=== PATIENT | male | born 1950 | race African-American/Black ===

== ENCOUNTER 2016-10-30 06:48 | Emergency (ER) | payer OTHER, MEDICARE ==
[2016-10-30 07:07] LABS: ABSOLUTE BASOPHILS # (AUTO) 0.1 10^3/uL (0.0-0.2); ABSOLUTE EOSINOPHILS # (AUTO) 0.2 10^3/uL (0.0-0.6); ABSOLUTE LYMPHOCYTES (AUTO) 2.4 10^3/uL (0.5-4.7); ABSOLUTE MONOCYTES (AUTO) 0.6 10^3/uL (0.1-1.4); ABSOLUTE NEUT (AUTO) 7.7 10^3/uL (1.7-8.2); BASOPHILS % (AUTO) 0.6 % (0-2); EOSINOPHILS % (AUTO) 1.5 % (0-6); HEMATOCRIT 40.4 % (37.9-51.0); HEMOGLOBIN 13.5 g/dL (13.5-17.0); HGB HCT DIFFERENCE 0.1; LYMPHOCYTES % (AUTO) 21.9 % (13-45); MEAN CORPUSCULAR HEMOGLOBIN 31.7 pg (27.0-33.4); MEAN CORPUSCULAR HGB CONC 33.5 g/dL (32.0-36.0); MEAN CORPUSCULAR VOLUME 95 fl (80-97); MONOCYTES % (AUTO) 5.8 % (3-13); RED BLOOD COUNT 4.27 10^6/uL (4.35-5.55); SEGMENTED NEUTROPHILS % (AUTO) 70.2 % (42-78); WHITE BLOOD COUNT 10.9 10^3/uL (4.0-10.5)
--- NOTE | 2016-10-30 07:07 | ER Document Report ---
ED General - General Chief Complaint: Low Blood Sugar Stated Complaint: BLOOD SUGAR PROBLEMS Time Seen by Provider: 10/30/16 06:51 Mode of Arrival: Ambulatory Information source: Patient Notes: 66-year-old diabetic male on glipizide and metformin presents with complaints of hypoglycemia. Patient had an episode last night blood sugar was low, EMS was called and his blood sugar corrected, this morning patient was drowsy stating he was swimming, blood sugar was noted to be 37, he was given oral glucose blood sugar went up and went back down again 49. family notes patient is doing better now - HPI Onset: Just prior to arrival Onset/Duration: Sudden Quality of pain: No pain Severity: Mild Pain Level: Denies Associated symptoms: Weakness Exacerbated by: Denies Relieved by: Denies Similar symptoms previously: Yes Recently seen / treated by doctor: Yes - Related Data Allergies/Adverse Reactions: No Known Allergies Allergy (Unverified 01/24/11 02:45) Past Medical History - Social History Smoking Status: Current Every Day Smoker Cigarette use (# per day): Yes Chew tobacco use (# tins/day): No Smoking Education Provided: No Family History: Reviewed & Not Pertinent Review of Systems - Review of Systems Notes: REVIEW OF SYSTEMS: CONSTITUTIONAL : Denies fever, chills, or sweats. Denies recent illness. EENT: Denies eye, ear, throat, or mouth pain or symptoms. Denies nasal or sinus congestion or discharge. Denies throat, tongue, or mouth swelling or difficulty swallowing. CARDIOVASCULAR: Denies chest pain. Denies palpitations or racing or irregular heart beat. Denies ankle edema. RESPIRATORY: Denies cough, cold, or chest congestion. Denies shortness of breath, difficulty breathing, or wheezing. GASTROINTESTINAL: Denies abdominal pain or distention. Denies nausea, vomiting , or diarrhea. Denies blood in vomitus, stools, or per rectum. Denies black, tarry stools. Denies constipation. GENITOURINARY: Denies difficulty urinating, painful urination, burning, frequency, blood in urine, or discharge. MUSCULOSKELETAL: Denies back or neck pain or stiffness. Denies joint pain or swelling. SKIN: Denies rash, lesions or sores. HEMATOLOGIC : Denies easy bruising or bleeding. LYMPHATIC: Denies swollen, enlarged glands. NEUROLOGICAL: admits to confusion PSYCHIATRIC: Denies anxiety or stress. Denies depression, suicidal ideation, or homicidal ideation. ALL OTHER SYSTEMS REVIEWED AND NEGATIVE. Dictation was performed using [employer] voice recognition software PHYSICAL EXAMINATION: GENERAL: Well-appearing, well-nourished and in no acute distress. HEAD: Atraumatic, normocephalic. EYES: Pupils equal round and reactive to light, extraocular movements intact, sclera anicteric, conjunctiva are normal. ENT: Nares patent, oropharynx clear without exudates. Moist mucous membranes. NECK: Normal range of motion, supple without lymphadenopathy LUNGS: Breath sounds clear to auscultation bilaterally and equal. No wheezes rales or rhonchi. HEART: Regular rate and rhythm without murmurs ABDOMEN: Soft, nontender, nondistended abdomen. No guarding, no rebound. No masses appreciated. Musculoskeletal: Normal range of motion, no pitting or edema. No cyanosis. NEUROLOGICAL: Cranial nerves grossly intact. Normal speech, normal gait. Normal sensory, motor exams PSYCH: Normal mood, normal affect. SKIN: Warm, Dry, normal turgor, no rashes or lesions noted. Physical Exam - Vital signs Vitals: Temp Pulse Resp BP Pulse Ox 97.2 F 73 18 143/78 H 100 10/30/16 06:52 10/30/16 06:52 10/30/16 06:52 10/30/16 06:52 10/30/16 06:52 Course - Re-evaluation Re-evalutation: 10/30/16 07:07 pt will be fed and watched closely, he is acting at his baseline at this time. 10/30/16 10:09 Patient's blood sugar was rechecked and he is now stable I will discharge with understand that the patient continue eating and checking his blood sugar at home After performing a Medical Screening Examination, I estimate there is LOW risk for INTRACRANIAL HEMORRHAGE, ISCHEMIC CVA, MALIGNANT DYSRHYTHMIA, ACUTE CORONARY SYNDROME, MENINGITIS, PULMONARY EMBOLISM, or SEPSIS thus I consider the discharge disposition reasonable. I have reevaluated this patient multiple times and no significant life threatening changes are noted. The patient and I have discussed the diagnosis and risks, and we agree with discharging home with close follow-up with the understanding that symptoms and presentations can change. We also discussed returning to the Emergency Department immediately if new or worsening symptoms occur. We have discussed the symptoms which are most concerning (e.g., changing or worsening pain, weakness, vomiting, fever) that necessitate immediate return. - Vital Signs Vital signs: Temp Pulse Resp BP Pulse Ox 97.2 F 73 17 111/77 100 10/30/16 06:52 10/30/16 06:52 10/30/16 09:01 10/30/16 09:00 10/30/16 09:01 - Laboratory Result Diagrams: 10/30/16 06:50 10/30/16 06:50 Laboratory results interpreted by me: 10/30/16 10/30/16 06:50 08:17 WBC 10.9 H RBC 4.27 L POC Glucose 128 H - EKG Interpretation by Me EKG shows normal: Sinus rhythm, [place], Intervals, QRS Complexes Discharge - Discharge Clinical Impression: Hypoglycemia Altered mental status Qualifiers: Altered mental status type: unspecified Qualified Code(s): R41.82 - Altered mental status, unspecified Condition: Stable Disposition: HOME, SELF-CARE Instructions: Hypoglycemia (OM) Referrals: OLGA FORDE MD [Primary Care Provider] - Follow up tomorrow
[2016-10-30 10:10] VITALS: BP 133/106
[2016-10-30 10:28] LABS: ALANINE AMINOTRANSFERASE 22 U/L (21-72); ALBUMIN 4.2 g/dL (3.5-5.0); ALKALINE PHOSPHATASE 77 U/L (38-126); ANION GAP 10 (5-19); ASPARTATE AMINO TRANSFERASE 21 U/L (17-59); BILIRUBIN,DIRECT 0.3 mg/dL (0.0-0.4); BILIRUBIN,TOTAL 0.4 mg/dL (0.2-1.3); BLOOD UREA NITROGEN 31 mg/dL (7-20); CARBON DIOXIDE 20 mmol/L (22-30); CHLORIDE 103 mmol/L (98-107); CREATININE RESULT 1.76 mg/dL (0.52-1.25); GLUCOSE 101 mg/dL (75-110); SODIUM 132.8 mmol/L (137-145); TOTAL PROTEIN 7.7 g/dL (6.3-8.2)
[2016-10-30] MEDS ORDERED: 1/2 NORMAL SALINE 1,000 ML IV PRN (17:32)
[2016-10-30] MEDS ORDERED: ACETAMINOPHEN 325 MG TABLET PO PRN (17:32)
[2016-10-30] MEDS ORDERED: GLUCAGON,HUMAN RECOMB 1 MG INJ IM PRN (17:35)
[2016-10-30] MEDS ORDERED: DEXTROSE 50%-WATER 25 GM/50 ML DISP.SYRIN IV PRN ×2 (17:35)
[2016-10-30] MEDS ORDERED: DEXTROSE 40% GEL 15 GM TUBE PO PRN ×2 (17:35)
[2016-10-30] MEDS ORDERED: INSULIN LISPRO 100 UNIT/ML 3 ML VIAL SUBCUT PRN (17:35)
[2016-10-30] MEDS ORDERED: SODIUM POLYSTYRENE SULFONATE 15 GM/60 ML PO ONE (17:43)
--- NOTE | 2016-10-30 17:43 | PDOC H&P ---
History of Present Illness Admission Date/PCP: OLGA FORDE MD Patient complains of: Low blood sugar and abnormal labs History of Present Illness: ERNIE MERLOS is a 66 year old male This is a 66-year-old male with a history of the type 2 diabetes hypertension's hyperlipidemia and history of the chronic alcoholism with a recently quit the alcohol more than 1 week and start drinking more water and did not the patient' s blood sugar is running low and patient is called the ambulance and give a more orange juice and patient was brought to the emergency department last night that patient was watch for several hours and blood sugar was about 150 and patient was discharged home. Patients denied any chest pain denied any shortness of the breath no abdominal pain no nausea no vomiting and no diarrhea The ER physicians call my office after he noticed that patient's potassium was 7 and we called the patient's and the patient was back to the emergency department the potassium was 6.7 and at this point admitting in the hospital for further evaluation and treatments as per ER physician discussed with the nephrology Dr. Hung . patient's creatinine was 1.1 and BUN was 12 and potassium was 4.8 back in June 2016. Patient's other blood work was also stable. Patient's currently taking the lisinopril 40 mg daily for the blood pressures and no other medications that caused elevated potassiums Past Medical History Cardiac Medical History: Denies: None, Atrial Fibrillation, Congestive Heart Failure, Coronary Artery Disease, DVT, Myocardial Infarction, Hyperlipidema, Hypertension, Peripheral Vascular Disease, Pulmonary Embolism, Heart Murmur, Other Neurological Medical History: Denies: None, Hemorrhagic CVA, Ischemic CVA, Migraine, Multiple Sclerosis, Seizures, Other Endocrine Medical History: Reports: Diabetes Mellitus Type 2 GI Medical History: Reports: Gastroesophageal Reflux Disease Musculoskeltal Medical History: Reports: Arthritis, Other Musculoskeletal History Note: Rheumatoid arthritis Psychiatric Medical History: Reports: Alcohol Dependency, Depression Social History Smoking Status: Current Every Day Smoker Family History Family History: Reviewed & Not Pertinent Parental Family History Reviewed: Yes Children Family History Reviewed: Yes Sibling(s) Family History Reviewed.: Yes Medication/Allergy Allergies/Adverse Reactions: No Known Allergies Allergy (Unverified 01/24/11 02:45) Review of Systems Constitutional: ABSENT: chills, fever(s), headache(s), weight gain, weight loss Eyes: ABSENT: visual disturbances Ears: ABSENT: hearing changes Cardiovascular: ABSENT: chest pain, dyspnea on exertion, edema, orthropnea, palpitations Respiratory: ABSENT: cough, hemoptysis Gastrointestinal: ABSENT: abdominal pain, constipation, diarrhea, hematemesis, hematochezia, nausea, vomiting Genitourinary: ABSENT: dysuria, hematuria Musculoskeletal: ABSENT: joint swelling Integumentary: ABSENT: rash, wounds Neurological: ABSENT: abnormal gait, abnormal speech, confusion, dizziness, focal weakness, syncope Psychiatric: ABSENT: anxiety, depression, homidical ideation, suicidal ideation Endocrine: ABSENT: cold intolerance, heat intolerance, menstrual abnormalities, polydipsia, polyuria Hematologic/Lymphatic: ABSENT: easy bleeding, easy bruising, lymphadenopathy Physical Exam Vital Signs: Temp Pulse Resp BP Pulse Ox 97.2 F 73 17 133/106 H 100 10/30/16 06:52 10/30/16 06:52 10/30/16 10:01 10/30/16 10:01 10/30/16 10:01 Intake & Output 10/29/16 10/30/16 10/31/16 06:59 06:59 06:59 Weight 106.6 kg General appearance: PRESENT: no acute distress, well-developed, well-nourished Head exam: PRESENT: atraumatic, normocephalic Eye exam: PRESENT: conjunctiva pink, EOMI, PERRLA. ABSENT: scleral icterus Ear exam: PRESENT: normal external ear exam Mouth exam: PRESENT: moist, tongue midline Neck exam: PRESENT: full ROM. ABSENT: carotid bruit, JVD, lymphadenopathy, thyromegaly Respiratory exam: PRESENT: clear to auscultation winsome Cardiovascular exam: PRESENT: RRR. ABSENT: diastolic murmur, rubs, systolic murmur Pulses: PRESENT: normal dorsalis pedis pul, +2 pedal pulses bilateral Vascular exam: PRESENT: normal capillary refill GI/Abdominal exam: PRESENT: normal bowel sounds, soft. ABSENT: distended, guarding, mass, organolmegaly, rebound, tenderness Rectal exam: PRESENT: deferred Extremities exam: ABSENT: full ROM, left AKA, right AKA, left BKA, right BKA, calf tenderness, joint swelling, pedal edema, tenderness, other Neurological exam: PRESENT: alert, awake, oriented to person, oriented to place , oriented to time, oriented to situation, CN II-XII grossly intact. ABSENT: motor sensory deficit Psychiatric exam: PRESENT: appropriate affect, normal mood. ABSENT: homicidal ideation, suicidal ideation Skin exam: PRESENT: dry, intact, warm. ABSENT: cyanosis, rash Results Laboratory Results: 10/30/16 06:50 10/30/16 09:46 10/30/16 10/30/16 10/30/16 06:50 06:50 07:25 WBC 10.9 H RBC 4.27 L Hgb 13.5 Hct 40.4 MCV 95 MCH 31.7 MCHC 33.5 RDW 14.0 Plt Count 388 Seg Neutrophils % 70.2 Lymphocytes % 21.9 Monocytes % 5.8 Eosinophils % 1.5 Basophils % 0.6 Absolute Neutrophils 7.7 Absolute Lymphocytes 2.4 Absolute Monocytes 0.6 Absolute Eosinophils 0.2 Absolute Basophils 0.1 Sodium Cancelled Cancelled Potassium Cancelled Cancelled Chloride Cancelled Cancelled Carbon Dioxide Cancelled Cancelled Anion Gap Cancelled Cancelled BUN Cancelled Cancelled Creatinine Cancelled Cancelled Est GFR ( Amer) Cancelled Cancelled Est GFR (Non-Af Amer) Cancelled Cancelled Glucose Cancelled Cancelled Calcium Cancelled Cancelled Total Bilirubin Cancelled Cancelled AST Cancelled Cancelled ALT Cancelled Cancelled Alkaline Phosphatase Cancelled Cancelled Total Protein Cancelled Cancelled Albumin Cancelled Cancelled 10/30/16 09:46 WBC RBC Hgb Hct MCV MCH MCHC RDW Plt Count Seg Neutrophils % Lymphocytes % Monocytes % Eosinophils % Basophils % Absolute Neutrophils Absolute Lymphocytes Absolute Monocytes Absolute Eosinophils Absolute Basophils Sodium 132.8 L Potassium 7.0 H* Chloride 103 Carbon Dioxide 20 L Anion Gap 10 BUN 31 H Creatinine 1.76 H Est GFR ( Amer) 47 L Est GFR (Non-Af Amer) 39 L Glucose 101 Calcium 10.0 Total Bilirubin 0.4 AST 21 ALT 22 Alkaline Phosphatase 77 Total Protein 7.7 Albumin 4.2 Assessment & Plan - Diagnosis (1) Hyperkalemia Is this a current diagnosis for this admission?: YesPlan: Patient's EKG no acute change patient is completely asymptomatic. ER physician discussed with the nephrology and all treatment is initiated including the calcium gluconate and insulin and IV fluid We will repeat the potassium in 2 hours DC the lisinopril and DC the metformin Patient was drinking the several orange juice since last couple of days they may also contributed to elevated the potassiums (2) Hypertension Qualifiers: Hypertension type: essential hypertension Qualified Code(s): I10 - Essential (primary) hypertension Is this a current diagnosis for this admission?: YesPlan: Continues to Coreg and DC the lisinopril (3) Alcoholism Is this a current diagnosis for this admission?: YesPlan: Patients did not drink any alcohol since 1 week no sign of any withdrawal. We will put the patient on thiamine and continues to monitor for any withdrawal symptoms (4) Acute renal failure Qualifiers: Acute renal failure type: unspecified Qualified Code(s): N17.9 - Acute kidney failure, unspecified Is this a current diagnosis for this admission?: YesPlan: We will get the ultrasound of the kidney and follow with the nephrology and IV fluid (5) Hypoglycemia Is this a current diagnosis for this admission?: YesPlan: Most likely due to the acute renal failure will currently hold all the p.o. 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 With the patient in the ICU until the potassium is normalized. Continues to monitor the patient's follow with the nephrology plan
[2016-10-30] MEDS ORDERED: DOCUSATE SODIUM 100 MG CAPSULE PO SCH (18:00)
[2016-10-30 18:34] LABS: CREATINE KINASE MB 3.75 ng/mL (<4.55)
[2016-10-30 18:40] LABS: TROPONIN I < 0.012 ng/mL
[2016-10-30] MEDS ORDERED: ENOXAPARIN SODIUM INJ 30 MG/0.3 ML DISP.SYRIN SUBCUT ONE (19:00)
[2016-10-31] MEDS ORDERED: ENOXAPARIN SODIUM INJ 30 MG/0.3 ML DISP.SYRIN SUBCUT SCH (08:00)
== END 2016-10-30 10:23 | disposition home or self-care (01) ==
LOC: ER 06:48
DX: E11.649 Type 2 diabetes mellitus with hypoglycemia without coma (principal); Z79.84 Long term (current) use of oral hypoglycemic drugs; R41.0 Disorientation, unspecified; R53.1 Weakness; F17.210 Nicotine dependence, cigarettes, uncomplicated
CPT/HCPCS: 36415; 80053; 82550; 82553; 82962; 84484; 85025; 99285

== ENCOUNTER 2016-10-30 15:21 | Inpatient (IN) | payer OTHER, MEDICARE ==
[2016-10-30] MEDS ORDERED: INSULIN REG, HUMAN 100 UNIT/ML 3 ML VIAL (PYX) IV ONE (16:06)
[2016-10-30] MEDS ORDERED: DEXTROSE 50%-WATER 25 GM/50 ML DISP.SYRIN IV ONE (16:06)
[2016-10-30] MEDS ORDERED: CALCIUM GLUCONATE 1000 MG/10 ML INJ IV ONE (16:06)
--- NOTE | 2016-10-30 16:06 | ER Document Report ---
ED Medical Screen (RME) - General Chief Complaint: Abnormal labs- called back in Stated Complaint: ABNORMAL LABS Time Seen by Provider: 10/30/16 16:05 Mode of Arrival: Ambulatory Information source: Patient TRAVEL OUTSIDE OF THE [place] IN LAST 30 DAYS: No - HPI Patient complains to provider of: Elevated potassium Onset: This morning Onset/Duration: Sudden Quality of pain: No pain Associated Symptoms: None Exacerbated by: Denies Relieved by: Denies Recently seen / treated by doctor: Yes Notes: 10/30/16 16:10 Patient is a 66-year-old male who was called back to the emergency room for possible elevated potassium, patient was seen in this department earlier today for complaints of hypoglycemia, his sugar was corrected but unfortunately serum studies that were sent to the lab hemolyzed several times, therefore patient was discharged home without results, eventually the lab called and stated that his potassium came back at 7.0 so patient was called back to the emergency room for reevaluation, patient has no complaints at present time, no history of hyperkalemia in the past, no known history of kidney disease, no history of dialysis in the past - Related Data Allergies/Adverse Reactions: No Known Allergies Allergy (Unverified 01/24/11 02:45) Past Medical History Renal/ Medical History: Denies: Hx Peritoneal Dialysis Physical Exam - Vital signs Vitals: Temp Pulse Resp BP Pulse Ox 98.8 F 97 20 110/77 99 10/30/16 15:44 10/30/16 15:44 10/30/16 15:44 10/30/16 15:44 10/30/16 15:44 Course - Vital Signs Vital signs: Temp Pulse Resp BP Pulse Ox 98.8 F 97 20 110/77 99 10/30/16 15:44 10/30/16 15:44 10/30/16 15:44 10/30/16 15:44 10/30/16 15:44
[2016-10-30 16:44] LABS: ALANINE AMINOTRANSFERASE 28 U/L (21-72); ALBUMIN 4.4 g/dL (3.5-5.0); ALKALINE PHOSPHATASE 80 U/L (38-126); ANION GAP 11 (5-19); ASPARTATE AMINO TRANSFERASE 22 U/L (17-59); BILIRUBIN,DIRECT 0.3 mg/dL (0.0-0.4); BILIRUBIN,TOTAL 0.5 mg/dL (0.2-1.3); BLOOD UREA NITROGEN 31 mg/dL (7-20); CALCIUM 10.3 mg/dL (8.4-10.2); CARBON DIOXIDE 17 mmol/L (22-30); CHLORIDE 104 mmol/L (98-107); CREATININE RESULT 2.02 mg/dL (0.52-1.25); GLUCOSE 69 mg/dL (75-110); SODIUM 132.3 mmol/L (137-145)
[2016-10-30 16:52] LABS: POTASSIUM 6.7 mmol/L (3.6-5.0)
[2016-10-30] MEDS ORDERED: ALBUTEROL SULFATE 0.083% NEB 2.5 MG/3 ML AMPUL NEB ONE (16:54)
[2016-10-30] MEDS ORDERED: NORMAL SALINE 1000 ML 1,000 ML IV ONE ×2 (16:58→17:17)
[2016-10-30] MEDS ORDERED: DEXTROSE 5%-1/2 NORMAL SALINE 1,000 ML IV ONE (16:58)
[2016-10-30] MEDS ORDERED: SODIUM BICARBONATE 8.4% INJ 50 MEQ/50 ML DISP.SYRIN IV ONE (16:59)
[2016-10-30] MEDS ORDERED: SODIUM POLYSTYRENE SULFONATE 15 GM/60 ML PO ONE ×2 (17:28→21:00)
--- NOTE | 2016-10-30 17:34 | ER Document Report ---
ED General - General Chief Complaint: Abnormal Lab Results Stated Complaint: ABNORMAL LABS Time Seen by Provider: 10/30/16 16:05 Mode of Arrival: Ambulatory TRAVEL OUTSIDE OF THE [place] IN LAST 30 DAYS: No - HPI Patient complains to provider of: Elevated potassium Notes: Today for hypoglycemia left prior to laboratory findings of a potassium 7 patient is now returning of the phone calls patient otherwise has no complaints - Related Data Allergies/Adverse Reactions: No Known Allergies Allergy (Unverified 01/24/11 02:45) Past Medical History - General Information source: Patient - Social History Smoking Status: Current Every Day Smoker Chew tobacco use (# tins/day): No Frequency of alcohol use: None Drug Abuse: None Family History: Reviewed & Not Pertinent - Past Medical History Cardiac Medical History: Reports: Hx Hypertension Endocrine Medical History: Reports: Hx Diabetes Mellitus Type 2 Renal/ Medical History: Denies: Hx Peritoneal Dialysis Review of Systems - Review of Systems Constitutional: Other - Potassium EENT: No symptoms reported Cardiovascular: No symptoms reported Respiratory: No symptoms reported Gastrointestinal: No symptoms reported Genitourinary: No symptoms reported Male Genitourinary: No symptoms reported Musculoskeletal: No symptoms reported Skin: No symptoms reported Hematologic/Lymphatic: No symptoms reported Neurological/Psychological: No symptoms reported Physical Exam - Vital signs Vitals: Temp Pulse Resp BP Pulse Ox 98.8 F 97 20 110/77 99 10/30/16 15:44 10/30/16 15:44 10/30/16 15:44 10/30/16 15:44 10/30/16 15:44 Interpretation: Normal - General General appearance: Appears well, Alert - HEENT Head: Normocephalic, Atraumatic Eyes: Normal Pupils: PERRL - Respiratory Respiratory status: No respiratory distress Chest status: Nontender Breath sounds: Normal Chest palpation: Normal - Cardiovascular Rhythm: Regular Heart sounds: Normal auscultation Murmur: No - Abdominal Inspection: Normal Distension: No distension Bowel sounds: Normal Tenderness: Nontender Organomegaly: No organomegaly - Back Back: Normal, Nontender - Extremities General upper extremity: Normal inspection, Nontender, Normal color, Normal ROM , Normal temperature General lower extremity: Normal inspection, Nontender, Normal color, Normal ROM , Normal temperature, Normal weight bearing. No: Angela's sign - Neurological Neuro grossly intact: Yes Cognition: Normal Orientation: AAOx4 [place] Coma Scale Eye Opening: Spontaneous [place] Coma Scale Verbal: Oriented Juan Coma Scale Motor: Obeys Commands Silex Coma Scale Total: 15 Speech: Normal Motor strength normal: LUE, RUE, LLE, RLE Sensory: Normal - Psychological Associated symptoms: Normal affect, Normal mood - Skin Skin Temperature: Warm Skin Moisture: Dry Skin Color: Normal Course - Re-evaluation Re-evalutation: 10/30/16 19:19 Discussed patient's potassium with PCP and nephrology will treat with medications and Kayexalate will continue to repeat patient will be admitted to the ICU. EKG shows no changes - Vital Signs Vital signs: Temp Pulse Resp BP Pulse Ox 98.8 F 97 21 H 112/56 L 100 10/30/16 15:44 10/30/16 15:44 10/30/16 17:44 10/30/16 17:44 10/30/16 17:44 - Laboratory Result Diagrams: 10/30/16 14:15 Laboratory results interpreted by me: 10/30/16 10/30/16 14:15 14:15 Sodium 132.3 L Potassium 6.7 H* Carbon Dioxide 17 L BUN 31 H Creatinine 2.02 H Est GFR ( Amer) 40 L Est GFR (Non-Af Amer) 33 L Glucose 69 L Calcium 10.3 H Creatine Kinase 235 H Discharge - Discharge Clinical Impression: Hyperkalemia Acute renal failure Qualifiers: Acute renal failure type: unspecified Qualified Code(s): N17.9 - Acute kidney failure, unspecified Condition: Good Admitting Provider: [facility] Unit Admitted: ICU
--- NOTE | 2016-10-30 19:06 | RADIOLOGY REPORT (SQ) ---
EXAM DESCRIPTION: U/S RETROPERITON LTD COMPLETED DATE/TIME: 10/30/2016 6:41 pm REASON FOR STUDY: elevated K+ eval obstruction COMPARISON: None. TECHNIQUE: Dynamic and static grayscale images acquired of the kidneys and bladder and recorded on P ACS. Additional selected color Doppler and spectral images recorded. LIMITATIONS: None. FINDINGS: RIGHT KIDNEY: Normal size. Normal echogenicity. No solid or suspicious masses. No h ydronephrosis. No calcifications. LEFT KIDNEY: Normal size. Normal echogenicity. No solid or suspicious masses. No hydronephrosi s. No calcifications. OTHER FINDINGS: No other significant finding. IMPRESSION: No hydronephrosis. TECHNICAL DOCUMENTATION: JOB ID: [id number] [employer]- All Rights Reserved
[2016-10-30 19:59] LABS: ANION GAP 11 (5-19); BLOOD UREA NITROGEN 32 mg/dL (7-20); CALCIUM 9.9 mg/dL (8.4-10.2); CARBON DIOXIDE 17 mmol/L (22-30); CHLORIDE 103 mmol/L (98-107); CREATINE KINASE 238 U/L (55-170); CREATININE RESULT 1.91 mg/dL (0.52-1.25); GLUCOSE 138 mg/dL (75-110); SODIUM 130.8 mmol/L (137-145)
[2016-10-30] MEDS ORDERED: ACETAMINOPHEN 325 MG TABLET PO PRN (20:08)
[2016-10-30] MEDS ORDERED: 1/2 NORMAL SALINE 1,000 ML IV PRN (20:09)
[2016-10-30 20:10] LABS: CREATINE KINASE MB 3.24 ng/mL (<4.55)
[2016-10-30 20:15] LABS: TROPONIN I < 0.012 ng/mL
[2016-10-30 20:18] LABS: POTASSIUM 6.3 mmol/L (3.6-5.0)
[2016-10-30] MEDS ORDERED: ENOXAPARIN SODIUM INJ 30 MG/0.3 ML DISP.SYRIN SUBCUT ONE (21:00)
[2016-10-30] MEDS: DOCUSATE SODIUM 100 MG CAPSULE PO SCH (21:18)
[2016-10-30] MEDS ORDERED: NORMAL SALINE 1000 ML 1,000 ML IV PRN (21:30)
[2016-10-30] MEDS ORDERED: DEXTROSE 5%-WATER 1000 ML 1,000 ML with SODIUM BICARBONATE 100 MEQ IV ONE ×2 (22:00)
[2016-10-30 22:22] LABS: ANION GAP 9 (5-19); BLOOD UREA NITROGEN 29 mg/dL (7-20); CALCIUM 9.8 mg/dL (8.4-10.2); CARBON DIOXIDE 18 mmol/L (22-30); CHLORIDE 107 mmol/L (98-107); CREATININE RESULT 1.82 mg/dL (0.52-1.25); GLUCOSE 91 mg/dL (75-110); POTASSIUM 5.6 mmol/L (3.6-5.0); SODIUM 133.7 mmol/L (137-145)
[2016-10-30] MEDS ORDERED: SODIUM BICARBONATE IV ONE ×2 (22:45)
[2016-10-30] MEDS ORDERED: DEXTROSE 5% IV ONE ×2 (22:45)
[2016-10-30] MEDS ORDERED: WATER IV ONE ×2 (22:45)
--- NOTE | 2016-10-31 00:18 | EKG REPORT ---
SEVERITY:- OTHERWISE NORMAL ECG - SINUS RHYTHM BORDERLINE RIGHT AXIS DEVIATION : Confirmed by: Guero Medrano 31-Oct-2016 00:17:44
[2016-10-31 04:21] LABS: ALANINE AMINOTRANSFERASE 22 U/L (21-72); ALBUMIN 3.3 g/dL (3.5-5.0); ALKALINE PHOSPHATASE 62 U/L (38-126); ANION GAP 8 (5-19); ASPARTATE AMINO TRANSFERASE 20 U/L (17-59); BILIRUBIN,DIRECT 0.2 mg/dL (0.0-0.4); BILIRUBIN,TOTAL 0.5 mg/dL (0.2-1.3); BLOOD UREA NITROGEN 26 mg/dL (7-20); CALCIUM 9.3 mg/dL (8.4-10.2); CARBON DIOXIDE 17 mmol/L (22-30); CHLORIDE 108 mmol/L (98-107); CREATININE RESULT 1.73 mg/dL (0.52-1.25); GLUCOSE 110 mg/dL (75-110); MAGNESIUM 1.5 mg/dL (1.6-2.3); SODIUM 132.9 mmol/L (137-145); TOTAL PROTEIN 6.3 g/dL (6.3-8.2)
[2016-10-31 04:25] LABS: POTASSIUM 6.2 mmol/L (3.6-5.0)
[2016-10-31 05:35] LABS: ABSOLUTE EOSINOPHILS # (AUTO) 0.2 10^3/uL (0.0-0.6); ABSOLUTE LYMPHOCYTES (AUTO) 3.4 10^3/uL (0.5-4.7); ABSOLUTE MONOCYTES (AUTO) 0.7 10^3/uL (0.1-1.4); ABSOLUTE NEUT (AUTO) 4.6 10^3/uL (1.7-8.2); BASOPHILS % (AUTO) 0.5 % (0-2); EOSINOPHILS % (AUTO) 2.1 % (0-6); HEMATOCRIT 34.2 % (37.9-51.0); HEMOGLOBIN 11.5 g/dL (13.5-17.0); HGB HCT DIFFERENCE 0.3; MEAN CORPUSCULAR HGB CONC 33.7 g/dL (32.0-36.0); MEAN CORPUSCULAR VOLUME 95 fl (80-97); MONOCYTES % (AUTO) 8.1 % (3-13); RED BLOOD COUNT 3.61 10^6/uL (4.35-5.55); RED CELL DISTRIBUTION WIDTH 14.1 % (11.5-14.0); SEGMENTED NEUTROPHILS % (AUTO) 51.3 % (42-78); WHITE BLOOD COUNT 8.9 10^3/uL (4.0-10.5)
[2016-10-31 05:46] LABS: APPEARANCE,URINE CLEAR; BILIRUBIN,URINE NEGATIVE (NEGATIVE); GLUCOSE, URINE NEGATIVE (NEGATIVE); KETONES,URINE NEGATIVE (NEGATIVE); LEUKOCYTE ESTERASE,URINE NEGATIVE (NEGATIVE); NITRITE,URINE NEGATIVE (NEGATIVE); PROTEIN,URINE NEGATIVE (NEGATIVE); URINE SPECIFIC GRAVITY 1.005; UROBILINOGEN,URINE NEGATIVE mg/dL (<2.0)
[2016-10-31] MEDS ORDERED: SODIUM POLYSTYRENE SULFONATE 15 GM/60 ML PO ONE (06:00)
[2016-10-31] MEDS ORDERED: DEXTROSE 50%-WATER 25 GM/50 ML DISP.SYRIN IV PRN ×2 (07:45)
[2016-10-31] MEDS ORDERED: GLUCAGON,HUMAN RECOMB 1 MG INJ IM PRN (07:45)
[2016-10-31] MEDS ORDERED: DEXTROSE 40% GEL 15 GM TUBE PO PRN ×2 (07:45)
[2016-10-31] MEDS: DOCUSATE SODIUM 100 MG CAPSULE PO SCH ×2 (09:59→22:10)
[2016-10-31] MEDS: NORMAL SALINE 1000 ML 1,000 ML IV PRN ×2 (10:02→18:05)
[2016-10-31] MEDS: DEXTROSE 5%-WATER 1000 ML 1,000 ML with SODIUM BICARBONATE 150 MEQ IV PRN ×4 (10:02→23:58)
[2016-10-31] MEDS: ENOXAPARIN SODIUM INJ 30 MG/0.3 ML DISP.SYRIN SUBCUT SCH (10:03)
[2016-10-31 10:10] LABS: ANION GAP 9 (5-19); BLOOD UREA NITROGEN 23 mg/dL (7-20); CALCIUM 9.3 mg/dL (8.4-10.2); CARBON DIOXIDE 19 mmol/L (22-30); CHLORIDE 107 mmol/L (98-107); CREATININE RESULT 1.59 mg/dL (0.52-1.25); GLUCOSE 187 mg/dL (75-110); POTASSIUM 5.9 mmol/L (3.6-5.0); SODIUM 134.7 mmol/L (137-145)
[2016-10-31] MEDS ORDERED: MAGNESIUM SULFATE/D5W 100 ML IV ONE (11:22)
--- NOTE | 2016-10-31 11:40 | PDOC CONSULTATION ---
Consultation Consult Date: 10/31/16 Consult reason:: Acute kidney injury History of Present Illness Admission Date/PCP: 10/30/16 18:50 OLGA FORDE MD History of Present Illness: ERNIE MERLOS is a 66 year old male The history of diabetes mellitus hypertension and alcoholism who presented to the ER with history and symptoms with history of hypoglycemia. He says he quit alcohol and was consuming 12 pack a day approximately a week ago and is found that his sugars were beginning to drop. Yesterday symptoms got worse and was brought to the ER. Incidental labs done in the ER revealed that his potassium was 7 with elevated creatinine and metabolic acidosis. He was treated appropriately with anti-hyperkalemic measures including calcium, dextrose and insulin and Kayexalate and bicarb. His potassium dropped slowly to 5.9 yesterday but today has bumped back up to 6.3. He is seen in the ICU where he is in no distress.He denies any history of chest pain shortness of breath nausea nausea vomiting diarrhea. No history of being on any NSAIDs. No history to indicate urinary obstruction. He had a renal ultrasound done yesterday which I reviewed which was unremarkable. Past Medical History Cardiac Medical History: Reports: Hyperlipidemia, Hypertension-primary Denies: CHF-Systolic, Coronary Artery Disease Endocrine Medical History: Reports: Diabetes Mellitus Type 2 Psychiatric Medical History: Reports: Alcohol Dependency Social History Smoking Status: Former Smoker Frequency of Alcohol Use: None Drugs: None Hx Prescription Drug Abuse: No - Advance Directive Resuscitation Status: Full Code Family History Parental Family History Reviewed: Yes - Denies ESRD. Children Family History Reviewed: No Sibling(s) Family History Reviewed.: No Medication/Allergy Home Medications: Atorvastatin Calcium [Lipitor 40 mg Tablet] 40 mg PO QHS 10/31/16 Carvedilol [Coreg 12.5 mg Tablet] 12.5 mg PO Q12 10/31/16 Gabapentin [Neurontin 300 mg Capsule] 300 mg PO QHS 10/31/16 Glipizide [Glocotrol 5 Mg Tablet] 5 mg PO BIDACBS 10/31/16 Lisinopril [Prinivil 40 mg Tablet] 40 mg PO DAILY 10/31/16 Metformin HCl [Glucophage] 500 mg PO BIDACBS 10/31/16 Trolamine Salicylate 1 applic TP TIDP PRN 10/31/16 Allergies/Adverse Reactions: No Known Allergies Allergy (Unverified 01/24/11 02:45) Review of Systems Constitutional: ABSENT: anorexia, chills, fever(s), headache(s), night sweats, weakness, weight loss Ears: ABSENT: hearing changes Nose, Mouth, and Throat: ABSENT: headache(s), mouth pain, sore throat Cardiovascular: ABSENT: palpitations Gastrointestinal: ABSENT: abdominal pain, bloating, coffee ground emesis, constipation, diarrhea, dysphagia, heartburn, hematemesis Genitourinary: ABSENT: difficulty urinating, dysuria, hematuria Neurological: ABSENT: confusion, focal weakness Physical Exam Vital Signs: Temp Pulse Resp BP Pulse Ox 98.2 F 82 19 148/74 H 99 10/31/16 08:00 10/31/16 10:00 10/31/16 10:00 10/31/16 10:00 10/31/16 10:00 Intake & Output 10/30/16 10/31/16 11/01/16 06:59 06:59 06:59 Intake Total 1026 Output Total 800 Balance 226 Weight 107.7 kg General appearance: PRESENT: no acute distress Eye exam: PRESENT: conjunctiva pink, EOMI, PERRLA Ear exam: PRESENT: normal external ear exam. ABSENT: bleeding Neck exam: ABSENT: lymphadenopathy, meningismus, tenderness, thyromegaly, tracheal deviation Respiratory exam: PRESENT: clear to auscultation winsome. ABSENT: crackles, rhonchi Cardiovascular exam: PRESENT: +S1, +S2, systolic murmur GI/Abdominal exam: PRESENT: normal bowel sounds, soft. ABSENT: organomegaly, tenderness Extremities exam: ABSENT: pedal edema Neurological exam: PRESENT: alert, awake, oriented to person, oriented to place , oriented to time Focused psych exam: ABSENT: delusional, flight of ideas Skin exam: PRESENT: dry. ABSENT: erythema, mottled, rash Results Laboratory Results: 10/31/16 03:44 10/31/16 09:27 10/30/16 10/30/16 10/31/16 19:29 22:00 03:44 WBC RBC Hgb Hct MCV MCH MCHC RDW Plt Count Seg Neutrophils % Lymphocytes % Monocytes % Eosinophils % Basophils % Absolute Neutrophils Absolute Lymphocytes Absolute Monocytes Absolute Eosinophils Absolute Basophils Sodium 130.8 L 133.7 L 132.9 L Potassium 6.3 H* 5.6 H 6.2 H* Chloride 103 107 108 H Carbon Dioxide 17 L 18 L 17 L Anion Gap 11 9 8 BUN 32 H 29 H 26 H Creatinine 1.91 H 1.82 H 1.73 H Est GFR ( Amer) 43 L 46 L 48 L Est GFR (Non-Af Amer) 36 L 38 L 40 L Glucose 138 H 91 110 Calcium 9.9 9.8 9.3 Magnesium 1.5 L Total Bilirubin 0.5 AST 20 ALT 22 Alkaline Phosphatase 62 Total Protein 6.3 Albumin 3.3 L Urine Color Urine Appearance Urine pH Ur Specific [place] Urine Protein Urine Glucose (UA) Urine Ketones Urine Blood Urine Nitrite Ur Leukocyte Esterase Urine WBC (Auto) Urine RBC (Auto) 10/31/16 10/31/16 10/31/16 03:44 05:10 09:27 WBC 8.9 RBC 3.61 L Hgb 11.5 L Hct 34.2 L MCV 95 MCH 32.0 MCHC 33.7 RDW 14.1 H Plt Count 332 Seg Neutrophils % 51.3 Lymphocytes % 38.0 Monocytes % 8.1 Eosinophils % 2.1 Basophils % 0.5 Absolute Neutrophils 4.6 Absolute Lymphocytes 3.4 Absolute Monocytes 0.7 Absolute Eosinophils 0.2 Absolute Basophils 0.0 Sodium Potassium Chloride Carbon Dioxide Anion Gap BUN Creatinine Est GFR ( Amer) Est GFR (Non-Af Amer) Glucose Calcium Magnesium 1.4 L Total Bilirubin AST ALT Alkaline Phosphatase Total Protein Albumin Urine Color STRAW Urine Appearance CLEAR Urine pH 5.0 Ur Specific [place] 1.005 Urine Protein NEGATIVE Urine Glucose (UA) NEGATIVE Urine Ketones NEGATIVE Urine Blood MODERATE H Urine Nitrite NEGATIVE Ur Leukocyte Esterase NEGATIVE Urine WBC (Auto) 1 Urine RBC (Auto) 2 10/31/16 09:27 WBC RBC Hgb Hct MCV MCH MCHC RDW Plt Count Seg Neutrophils % Lymphocytes % Monocytes % Eosinophils % Basophils % Absolute Neutrophils Absolute Lymphocytes Absolute Monocytes Absolute Eosinophils Absolute Basophils Sodium 134.7 L Potassium 5.9 H Chloride 107 Carbon Dioxide 19 L Anion Gap 9 BUN 23 H Creatinine 1.59 H Est GFR ( Amer) 53 L Est GFR (Non-Af Amer) 44 L Glucose 187 H Calcium 9.3 Magnesium Total Bilirubin AST ALT Alkaline Phosphatase Total Protein Albumin Urine Color Urine Appearance Urine pH Ur Specific [place] Urine Protein Urine Glucose (UA) Urine Ketones Urine Blood Urine Nitrite Ur Leukocyte Esterase Urine WBC (Auto) Urine RBC (Auto) 10/30/16 10/30/16 19:29 19:29 Creatine Kinase 238 H CK-MB (CK-2) 3.24 Troponin I < 0.012 NT-Pro-B Natriuret Pep 249 Impressions: Renal Ultrasound 10/30/16 17:29 IMPRESSION: No hydronephrosis. Assessment & Plan - Diagnosis (1) Acute kidney injury Plan: See response to hydration as patient clinically dehydrated. No evidences of urinary obstruction on ultrasound.No evidences of hemolysis or acute rhabdo.Agree with current stoppage of his antihypertensives including LUIS CARLOS inhibitors. (3) Hyperkalemia Plan: Continue on hydration and have increased the rate. Continue with his correction of his metabolic acidosis and have titrated his and his bicarb drip. 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 (4) Hypertension Qualifiers: Hypertension type: essential hypertension Qualified Code(s): I10 - Essential (primary) hypertension Plan: Relatively controlled monitor. Use non-LUIS CARLOS inhibitors. (5) Hypoglycemia Plan: Corrected and stable. (6) Metabolic acidosis Plan: Do not use metformin. Replacement with bicarbonate ongoing. Monitor. (7) Hypomagnesemia Plan: In the history of alcoholism. Orders for replacement given.
[2016-10-31] MEDS: INSULIN LISPRO 100 UNIT/ML 3 ML VIAL SUBCUT PRN ×3 (13:12→22:11)
--- NOTE | 2016-10-31 13:55 | PDOC PROGRESS REPORT ---
Subjective Progress Note for:: 10/31/16 Subjective:: pt is doing wellPatients denied any chest painDenied any shortness of the breathPatient's potassium is coming down Physical Exam Vital Signs: Temp Pulse Resp BP Pulse Ox 98.1 F 93 18 115/63 99 10/31/16 12:00 10/31/16 12:00 10/31/16 12:00 10/31/16 12:00 10/31/16 12:00 Intake & Output 10/30/16 10/31/16 11/01/16 06:59 06:59 06:59 Intake Total 1026 237 Output Total 800 Balance 226 237 Weight 107.7 kg General appearance: PRESENT: no acute distress, well-developed, well-nourished Head exam: PRESENT: atraumatic, normocephalic Eye exam: PRESENT: conjunctiva pink, EOMI, PERRLA. ABSENT: scleral icterus Ear exam: PRESENT: normal external ear exam Mouth exam: PRESENT: moist, tongue midline Neck exam: PRESENT: full ROM. ABSENT: carotid bruit, JVD, lymphadenopathy, thyromegaly Respiratory exam: PRESENT: clear to auscultation winsome Cardiovascular exam: PRESENT: RRR. ABSENT: diastolic murmur, rubs, systolic murmur Pulses: PRESENT: normal dorsalis pedis pul, +2 pedal pulses bilateral Vascular exam: PRESENT: normal capillary refill GI/Abdominal exam: PRESENT: normal bowel sounds, soft. ABSENT: distended, guarding, mass, organolmegaly, rebound, tenderness Rectal exam: PRESENT: deferred Neurological exam: PRESENT: alert, awake, oriented to person, oriented to place , oriented to time, oriented to situation, CN II-XII grossly intact. ABSENT: motor sensory deficit Psychiatric exam: PRESENT: appropriate affect, normal mood. ABSENT: homicidal ideation, suicidal ideation Skin exam: PRESENT: dry, intact, warm. ABSENT: cyanosis, rash Results Laboratory Results: 10/31/16 03:44 10/31/16 09:27 10/30/16 10/30/16 10/31/16 19:29 22:00 03:44 WBC RBC Hgb Hct MCV MCH MCHC RDW Plt Count Seg Neutrophils % Lymphocytes % Monocytes % Eosinophils % Basophils % Absolute Neutrophils Absolute Lymphocytes Absolute Monocytes Absolute Eosinophils Absolute Basophils Sodium 130.8 L 133.7 L 132.9 L Potassium 6.3 H* 5.6 H 6.2 H* Chloride 103 107 108 H Carbon Dioxide 17 L 18 L 17 L Anion Gap 11 9 8 BUN 32 H 29 H 26 H Creatinine 1.91 H 1.82 H 1.73 H Est GFR ( Amer) 43 L 46 L 48 L Est GFR (Non-Af Amer) 36 L 38 L 40 L Glucose 138 H 91 110 Calcium 9.9 9.8 9.3 Magnesium 1.5 L Total Bilirubin 0.5 AST 20 ALT 22 Alkaline Phosphatase 62 Total Protein 6.3 Albumin 3.3 L Urine Color Urine Appearance Urine pH Ur Specific [place] Urine Protein Urine Glucose (UA) Urine Ketones Urine Blood Urine Nitrite Ur Leukocyte Esterase Urine WBC (Auto) Urine RBC (Auto) 10/31/16 10/31/16 10/31/16 03:44 05:10 09:27 WBC 8.9 RBC 3.61 L Hgb 11.5 L Hct 34.2 L MCV 95 MCH 32.0 MCHC 33.7 RDW 14.1 H Plt Count 332 Seg Neutrophils % 51.3 Lymphocytes % 38.0 Monocytes % 8.1 Eosinophils % 2.1 Basophils % 0.5 Absolute Neutrophils 4.6 Absolute Lymphocytes 3.4 Absolute Monocytes 0.7 Absolute Eosinophils 0.2 Absolute Basophils 0.0 Sodium Potassium Chloride Carbon Dioxide Anion Gap BUN Creatinine Est GFR ( Amer) Est GFR (Non-Af Amer) Glucose Calcium Magnesium 1.4 L Total Bilirubin AST ALT Alkaline Phosphatase Total Protein Albumin Urine Color STRAW Urine Appearance CLEAR Urine pH 5.0 Ur Specific [place] 1.005 Urine Protein NEGATIVE Urine Glucose (UA) NEGATIVE Urine Ketones NEGATIVE Urine Blood MODERATE H Urine Nitrite NEGATIVE Ur Leukocyte Esterase NEGATIVE Urine WBC (Auto) 1 Urine RBC (Auto) 2 10/31/16 09:27 WBC RBC Hgb Hct MCV MCH MCHC RDW Plt Count Seg Neutrophils % Lymphocytes % Monocytes % Eosinophils % Basophils % Absolute Neutrophils Absolute Lymphocytes Absolute Monocytes Absolute Eosinophils Absolute Basophils Sodium 134.7 L Potassium 5.9 H Chloride 107 Carbon Dioxide 19 L Anion Gap 9 BUN 23 H Creatinine 1.59 H Est GFR ( Amer) 53 L Est GFR (Non-Af Amer) 44 L Glucose 187 H Calcium 9.3 Magnesium Total Bilirubin AST ALT Alkaline Phosphatase Total Protein Albumin Urine Color Urine Appearance Urine pH Ur Specific [place] Urine Protein Urine Glucose (UA) Urine Ketones Urine Blood Urine Nitrite Ur Leukocyte Esterase Urine WBC (Auto) Urine RBC (Auto) 10/30/16 10/30/16 19:29 19:29 Creatine Kinase 238 H CK-MB (CK-2) 3.24 Troponin I < 0.012 NT-Pro-B Natriuret Pep 249 Impressions: Renal Ultrasound 10/30/16 17:29 IMPRESSION: No hydronephrosis. Assessment & Plan - Diagnosis (1) Hyperkalemia Is this a current diagnosis for this admission?: YesPlan: Currently improving repeat the SMA-7 and 2:00 patient's EKG is stable and no change in the telemetry follow with the nephrology hold the lisinopril (2) Acute renal failure Qualifiers: Acute renal failure type: unspecified Qualified Code(s): N17.9 - Acute kidney failure, unspecified Is this a current diagnosis for this admission?: YesPlan: Continues to IV fluid and currently improving (3) Metabolic acidosis Is this a current diagnosis for this admission?: YesPlan: Continues to sodium bicarb per nephrology (4) Alcoholism Is this a current diagnosis for this admission?: YesPlan: No sign of any withdrawal (5) Hypertension Qualifiers: Hypertension type: essential hypertension Qualified Code(s): I10 - Essential (primary) hypertension Is this a current diagnosis for this admission?: YesPlan: Currently stable (6) Hypoglycemia Is this a current diagnosis for this admission?: YesPlan: Currently hold the metformin and glipizide (7) Type 2 diabetes mellitus Qualifiers: Diabetes mellitus complication status: with unspecified complications Is this a current diagnosis for this admission?: YesPlan: Once the kidney function is improving will restart the glipizide - Time Time Spent with patient: 15-24 minutes Medications reviewed and adjusted accordingly: Yes Anticipated discharge: Home Within: Other - Inpatient Certification Medical Necessity: Need Close Monitoring Due to Risk of Patient Decompensation, Need For IV Fluids 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
[2016-10-31 17:23] LABS: ANION GAP 9 (5-19); BLOOD UREA NITROGEN 20 mg/dL (7-20); CALCIUM 9.5 mg/dL (8.4-10.2); CARBON DIOXIDE 23 mmol/L (22-30); CHLORIDE 106 mmol/L (98-107); CREATININE RESULT 1.45 mg/dL (0.52-1.25); GLUCOSE 156 mg/dL (75-110); POTASSIUM 5.4 mmol/L (3.6-5.0); SODIUM 137.5 mmol/L (137-145)
[2016-10-31] MEDS: CARVEDILOL 12.5 MG TABLET PO SCH (18:57)
[2016-10-31 20:07] LABS: CREATINE KINASE MB 2.32 ng/mL (<4.55)
[2016-10-31 20:11] LABS: TROPONIN I < 0.012 ng/mL
--- NOTE | 2016-10-31 22:41 | EKG REPORT ---
SEVERITY:- OTHERWISE NORMAL ECG - SINUS TACHYCARDIA BORDERLINE RIGHT AXIS DEVIATION : Confirmed by: Guero Medrano 31-Oct-2016 22:40:51
[2016-11-01] MEDS: NORMAL SALINE 1000 ML 1,000 ML IV PRN ×2 (01:49→09:56)
[2016-11-01 01:59] LABS: CREATINE KINASE MB 1.85 ng/mL (<4.55)
[2016-11-01 02:03] LABS: TROPONIN I < 0.012 ng/mL
[2016-11-01 08:25] LABS: PHOSPHORUS 3.4 mg/dL (2.5-4.5)
[2016-11-01 08:48] LABS: TROPONIN I < 0.012 ng/mL
--- NOTE | 2016-11-01 08:51 | PDOC PROGRESS REPORT ---
Subjective Progress Note for:: 11/01/16 Subjective:: Patient is currently doing well. Patient heart rate was elevated yesterday and patient's Coreg was restarted and currently stable Patients denied any chest pain denied any shortness of the breath denied any abdominal pain no nausea no vomiting Physical Exam Vital Signs: Temp Pulse Resp BP Pulse Ox 98.6 F 98 22 H 166/80 H 99 11/01/16 07:52 11/01/16 07:52 11/01/16 07:52 11/01/16 07:52 11/01/16 07:52 Intake & Output 10/31/16 11/01/16 11/02/16 06:59 06:59 06:59 Intake Total 1026 5272 Output Total 800 2825 600 Balance 226 2447 -600 Weight 107.7 kg 107.7 kg General appearance: PRESENT: no acute distress, well-developed, well-nourished Head exam: PRESENT: atraumatic, normocephalic Eye exam: PRESENT: conjunctiva pink, EOMI, PERRLA. ABSENT: scleral icterus Ear exam: PRESENT: normal external ear exam Mouth exam: PRESENT: moist, tongue midline Neck exam: PRESENT: full ROM. ABSENT: carotid bruit, JVD, lymphadenopathy, thyromegaly Respiratory exam: PRESENT: clear to auscultation winsome Cardiovascular exam: PRESENT: RRR. ABSENT: diastolic murmur, rubs, systolic murmur Pulses: PRESENT: normal dorsalis pedis pul, +2 pedal pulses bilateral Vascular exam: PRESENT: normal capillary refill GI/Abdominal exam: PRESENT: normal bowel sounds, soft. ABSENT: distended, guarding, mass, organolmegaly, rebound, tenderness Rectal exam: PRESENT: deferred Neurological exam: PRESENT: alert, awake, oriented to person, oriented to place , oriented to time, oriented to situation, CN II-XII grossly intact. ABSENT: motor sensory deficit Psychiatric exam: PRESENT: appropriate affect, normal mood. ABSENT: homicidal ideation, suicidal ideation Skin exam: PRESENT: dry, intact, warm. ABSENT: cyanosis, rash Results Laboratory Results: 10/31/16 03:44 10/31/16 10/31/16 10/31/16 09:27 09:27 16:55 Sodium 134.7 L 137.5 Potassium 5.9 H 5.4 H Chloride 107 106 Carbon Dioxide 19 L 23 Anion Gap 9 9 BUN 23 H 20 Creatinine 1.59 H 1.45 H Est GFR ( Amer) 53 L 59 L Est GFR (Non-Af Amer) 44 L 49 L Glucose 187 H 156 H Calcium 9.3 9.5 Phosphorus Magnesium 1.4 L 11/01/16 07:57 Sodium Potassium Chloride Carbon Dioxide Anion Gap BUN Creatinine Est GFR ( Amer) Est GFR (Non-Af Amer) Glucose Calcium Phosphorus 3.4 Magnesium 10/30/16 10/30/16 10/31/16 19:29 19:29 19:19 Creatine Kinase 238 H 196 H CK-MB (CK-2) 3.24 Troponin I < 0.012 NT-Pro-B Natriuret Pep 249 10/31/16 11/01/16 11/01/16 19:19 01:22 01:22 Creatine Kinase 185 H CK-MB (CK-2) 2.32 1.85 Troponin I < 0.012 < 0.012 NT-Pro-B Natriuret Pep 11/01/16 11/01/16 07:57 07:57 Creatine Kinase 189 H CK-MB (CK-2) 1.90 Troponin I < 0.012 NT-Pro-B Natriuret Pep Impressions: Renal Ultrasound 10/30/16 17:29 IMPRESSION: No hydronephrosis. Assessment & Plan - Diagnosis (1) Hyperkalemia Is this a current diagnosis for this admission?: YesPlan: Currently all resolving (2) Acute renal failure Qualifiers: Acute renal failure type: unspecified Qualified Code(s): N17.9 - Acute kidney failure, unspecified Is this a current diagnosis for this admission?: YesPlan: Currently stable (3) Metabolic acidosis Is this a current diagnosis for this admission?: YesPlan: Currently stable follow with the nephrology (4) Alcoholism Is this a current diagnosis for this admission?: YesPlan: No sign of any withdrawal (5) Hypertension Qualifiers: Hypertension type: essential hypertension Qualified Code(s): I10 - Essential (primary) hypertension Is this a current diagnosis for this admission?: YesPlan: Currently stable (6) Hypoglycemia Is this a current diagnosis for this admission?: YesPlan: Resolved (7) Type 2 diabetes mellitus Qualifiers: Diabetes mellitus complication status: with unspecified complications Is this a current diagnosis for this admission?: YesPlan: Once the kidney function is improving will restart the glipizide - Time Time Spent with patient: 15-24 minutes Medications reviewed and adjusted accordingly: Yes Anticipated discharge: Home Within: Other - Inpatient Certification Medical Necessity: Need Close Monitoring Due to Risk of Patient Decompensation 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
[2016-11-01 08:55] LABS: ANION GAP 6 (5-19); BLOOD UREA NITROGEN 14 mg/dL (7-20); CALCIUM 9.4 mg/dL (8.4-10.2); CARBON DIOXIDE 25 mmol/L (22-30); CHLORIDE 105 mmol/L (98-107); CREATININE RESULT 1.21 mg/dL (0.52-1.25); GLUCOSE 184 mg/dL (75-110); POTASSIUM 4.9 mmol/L (3.6-5.0); SODIUM 136.3 mmol/L (137-145)
[2016-11-01] MEDS: CARVEDILOL 12.5 MG TABLET PO SCH ×2 (09:52→22:35)
[2016-11-01] MEDS: ENOXAPARIN SODIUM INJ 30 MG/0.3 ML DISP.SYRIN SUBCUT SCH (09:53)
[2016-11-01] MEDS: INSULIN LISPRO 100 UNIT/ML 3 ML VIAL SUBCUT PRN (09:55)
[2016-11-01] MEDS: DOCUSATE SODIUM 100 MG CAPSULE PO SCH ×2 (09:56→22:35)
--- NOTE | 2016-11-01 16:37 | PDOC PROGRESS REPORT ---
Subjective Progress Note for:: 11/01/16 Subjective:: Patient seen today in the ICU. He is feeling a whole lot better. His appetite is improved and is eating and drinking well. No complaints of any chest pain shortness of breath. No history of nausea vomiting. Physical Exam Vital Signs: Temp Pulse Resp BP Pulse Ox 98.7 F 94 21 H 150/95 H 97 11/01/16 12:00 11/01/16 12:00 11/01/16 14:31 11/01/16 14:31 11/01/16 14:31 Intake & Output 10/31/16 11/01/16 11/02/16 06:59 06:59 06:59 Intake Total 1026 5272 360 Output Total 800 2825 1220 Balance 226 2447 -860 Weight 107.7 kg 107.7 kg General appearance: PRESENT: no acute distress Respiratory exam: PRESENT: clear to auscultation winsome. ABSENT: crackles Cardiovascular exam: PRESENT: +S1, +S2, systolic murmur GI/Abdominal exam: PRESENT: normal bowel sounds, soft. ABSENT: organomegaly, tenderness Results Laboratory Results: 10/31/16 03:44 11/01/16 07:57 10/31/16 11/01/16 11/01/16 16:55 07:57 07:57 Sodium 137.5 136.3 L Potassium 5.4 H 4.9 Chloride 106 105 Carbon Dioxide 23 25 Anion Gap 9 6 BUN 20 14 Creatinine 1.45 H 1.21 Est GFR ( Amer) 59 L > 60 Est GFR (Non-Af Amer) 49 L > 60 Glucose 156 H 184 H Calcium 9.5 9.4 Phosphorus 3.4 10/30/16 10/30/16 10/31/16 19:29 19:29 19:19 Creatine Kinase 238 H 196 H CK-MB (CK-2) 3.24 Troponin I < 0.012 NT-Pro-B Natriuret Pep 249 10/31/16 11/01/16 11/01/16 19:19 01:22 01:22 Creatine Kinase 185 H CK-MB (CK-2) 2.32 1.85 Troponin I < 0.012 < 0.012 NT-Pro-B Natriuret Pep 11/01/16 11/01/16 07:57 07:57 Creatine Kinase 189 H CK-MB (CK-2) 1.90 Troponin I < 0.012 NT-Pro-B Natriuret Pep Impressions: Renal Ultrasound 10/30/16 17:29 IMPRESSION: No hydronephrosis. Assessment & Plan - Diagnosis (1) Acute kidney injury Plan: Resolved. (2) Alcoholism Is this a current diagnosis for this admission?: YesPlan: Is evidences of alcohol withdrawal or delirium tremens. (3) Hyperkalemia Is this a current diagnosis for this admission?: YesPlan: Resolved. I am going to sign out and please call on a as needed basis. (4) Hypertension Qualifiers: Hypertension type: essential hypertension Qualified Code(s): I10 - Essential (primary) hypertension Is this a current diagnosis for this admission?: YesPlan: Will leave the titration to Dr. Kapoor. (5) Hypoglycemia Is this a current diagnosis for this admission?: Yes (6) Metabolic acidosis Is this a current diagnosis for this admission?: YesPlan: Resolved (7) Hypomagnesemia Plan: Status post IV replacement. Follow-up with labs in the morning
[2016-11-02 08:23] LABS: ANION GAP 8 (5-19); BLOOD UREA NITROGEN 9 mg/dL (7-20); CALCIUM 9.5 mg/dL (8.4-10.2); CARBON DIOXIDE 27 mmol/L (22-30); CHLORIDE 103 mmol/L (98-107); CREATININE RESULT 1.21 mg/dL (0.52-1.25); GLUCOSE 164 mg/dL (75-110); POTASSIUM 4.5 mmol/L (3.6-5.0); SODIUM 137.9 mmol/L (137-145)
[2016-11-02] MEDS ORDERED: MAGNESIUM SULFATE/D5W 1 GM/100 ML RTUPB IV ONE (09:00)
[2016-11-02] MEDS: ENOXAPARIN SODIUM INJ 30 MG/0.3 ML DISP.SYRIN SUBCUT SCH (09:16)
[2016-11-02] MEDS: CARVEDILOL 12.5 MG TABLET PO SCH (09:29)
[2016-11-02] MEDS: DOCUSATE SODIUM 100 MG CAPSULE PO SCH (09:29)
--- NOTE | 2016-11-02 12:52 | PDOC DISCHARGE SUMMARY ---
General - Admit/Disc Date/PCP Admission Date/Primary Care Provider: 10/30/16 18:50 OLGA FORDE MD Discharge Date: 11/02/16 - Discharge Diagnosis (1) Hyperkalemia Is this a current diagnosis for this admission?: YesSummary: Most likely due to the lisinopril and the dehydration's currently all resolved (2) Acute renal failure Is this a current diagnosis for this admission?: YesSummary: Currently all resolved (3) Metabolic acidosis Is this a current diagnosis for this admission?: YesSummary: Currently all resolved (4) Alcoholism Is this a current diagnosis for this admission?: YesSummary: Patients did not drink alcohol since last 1 week currently all stable (5) Hypertension Is this a current diagnosis for this admission?: YesSummary: We will stop the lisinopril and increase the Coreg 25 mg twice a day (6) Hypoglycemia Is this a current diagnosis for this admission?: YesSummary: Currently all resolved (7) Type 2 diabetes mellitus Is this a current diagnosis for this admission?: YesSummary: We will stop the Metformin and start the glipizide 2.5 mg p.o. twice a day - Additional Information Resuscitation Status: Full Code Discharge Diet: Diabetic Discharge Activity: Activity As Tolerated Home Medications: Atorvastatin Calcium [Lipitor 40 mg Tablet] 40 mg PO QHS 10/31/16 Gabapentin [Neurontin 300 mg Capsule] 300 mg PO QHS 10/31/16 Carvedilol [Coreg 12.5 mg Tablet] 25 mg PO Q12 #60 tablet 11/02/16 Glipizide [Glucotrol 5 mg Tablet] 2.5 mg PO BIDACBS #60 11/02/16 History of Present Illness History of Present Illness: ERNIE MERLOS is a 66 year old male This 66-year-old male present in the emergency department due to the hyperkalemia with the incidental finding which patient basically present in the ER for the hypoglycemia patient was put in the ICU and a close monitor. Patient was completely asymptomatic. Dr. Hung was consulted for further evaluations Hospital Course Hospital Course: Is a 66-year-old male present in the emergency department because of the hypoglycemia and the patient was found the elevated potassium was 7 but otherwise patient was asymptomatic. Patient was stopped drinking alcohol since 1 week and the patient's currently taking the lisinopril and Metformin and the patient's most likely underlying acute renal failure and metabolic acidosis and hyperkalemia and the patient otherwise put in the ICU treated with a sodium bicarb and IV fluid and the patient's response very well. Patient EKG is normal and the patient's cardiac enzyme was also normal to and patients denied any complaints Patient's kidney function is back to normal and patient's bicarb is also normal Patient's magnesium was low was replaced and the start at home p.o. magnesium Patient seen by Dr. Hung and suggest this continues to current medications in the hospital and follow outpatients Patient's lisinopril and Metformin was DC'd Patient's Coreg was increased to 25 mg p.o. twice a day and patient was put on the glipizide Patient's walk in the hallway without any problem and patient's p.o. intake is good and patient does not have any alcohol withdrawal symptoms except some mild elevated heart rate and some low magnesium's Patients following office in 1 week we will repeat the Chem-7 magnesium Physical Exam Vital Signs: Temp Pulse Resp BP Pulse Ox 98.9 F 81 20 157/81 H 100 11/02/16 07:40 11/02/16 07:40 11/02/16 07:40 11/02/16 07:40 11/02/16 07:40 Intake & Output 11/01/16 11/02/16 11/03/16 06:59 06:59 06:59 Intake Total 5272 860 Output Total 2825 3170 Balance 2447 -2310 Weight 107.7 kg 108.8 kg General appearance: PRESENT: no acute distress, well-developed, well-nourished Head exam: PRESENT: atraumatic, normocephalic Eye exam: PRESENT: conjunctiva pink, EOMI, PERRLA. ABSENT: scleral icterus Ear exam: PRESENT: normal external ear exam Mouth exam: PRESENT: moist, tongue midline Neck exam: PRESENT: full ROM. ABSENT: carotid bruit, JVD, lymphadenopathy, thyromegaly Respiratory exam: PRESENT: clear to auscultation winsome Cardiovascular exam: PRESENT: RRR. ABSENT: diastolic murmur, rubs, systolic murmur Pulses: PRESENT: normal dorsalis pedis pul, +2 pedal pulses bilateral Vascular exam: PRESENT: normal capillary refill GI/Abdominal exam: PRESENT: normal bowel sounds, soft. ABSENT: distended, guarding, mass, organolmegaly, rebound, tenderness Rectal exam: PRESENT: deferred Neurological exam: PRESENT: alert, awake, oriented to person, oriented to place , oriented to time, oriented to situation, CN II-XII grossly intact. ABSENT: motor sensory deficit Psychiatric exam: PRESENT: appropriate affect, normal mood. ABSENT: homicidal ideation, suicidal ideation Skin exam: PRESENT: dry, intact, warm. ABSENT: cyanosis, rash Results Laboratory Results: 10/31/16 03:44 11/02/16 06:11 11/02/16 11/02/16 06:11 06:11 Sodium 137.9 Potassium 4.5 Chloride 103 Carbon Dioxide 27 Anion Gap 8 BUN 9 Creatinine 1.21 Est GFR ( Amer) > 60 Est GFR (Non-Af Amer) > 60 Glucose 164 H Calcium 9.5 Magnesium 1.3 L 10/30/16 10/30/16 10/31/16 19:29 19:29 19:19 Creatine Kinase 238 H 196 H CK-MB (CK-2) 3.24 Troponin I < 0.012 NT-Pro-B Natriuret Pep 249 10/31/16 11/01/16 11/01/16 19:19 01:22 01:22 Creatine Kinase 185 H CK-MB (CK-2) 2.32 1.85 Troponin I < 0.012 < 0.012 NT-Pro-B Natriuret Pep 11/01/16 11/01/16 07:57 07:57 Creatine Kinase 189 H CK-MB (CK-2) 1.90 Troponin I < 0.012 NT-Pro-B Natriuret Pep Impressions: Renal Ultrasound 10/30/16 17:29 IMPRESSION: No hydronephrosis. Plan Time Spent: Greater than 30 Minutes - Discussed with the patient and the daughter about the patient's current conditions DC the lisinopril and the Metformin and start the patient on increased coreg and also start the p.o. magnesium and the p.o. thiamine and follow the patient out patient in a one- week and will check the Chem-7 and magnesium in the readjust the medications Patient is otherwise doing well patient wants to very anxiously wants to go home Patient's p.o. intake is good and patient's move around without any problem
[2016-11-02 14:13] VITALS: BP 136/66
== END 2016-11-02 15:20 | disposition home or self-care (01) | DRG 641 ==
LOC: ER 15:21 → EH 18:12 → UNDOADMIN 18:12 → EH 18:50 → ICU 20:37 → 4W 11-01 16:30
PROVIDERS: ADMIT Family Medicine; ATTEND Family Medicine
DX: E87.5 Hyperkalemia (principal); N17.9 Acute kidney failure, unspecified; E87.2 Acidosis; F10.20 Alcohol dependence, uncomplicated; I10 Essential (primary) hypertension; E11.649 Type 2 diabetes mellitus with hypoglycemia without coma; E78.5 Hyperlipidemia, unspecified; E86.0 Dehydration; E83.42 Hypomagnesemia; M06.9 Rheumatoid arthritis, unspecified; K21.9 Gastro-esophageal reflux disease without esophagitis; Z87.891 Personal history of nicotine dependence; Z79.899 Other long term (current) drug therapy
CPT/HCPCS: 36415; 76775; 80048; 80053; 81001; 82550; 82553; 82962; 83735; 83880; 84100; 84484; 85025; 93005; 93010; 94640; 99285; J0610; J1650; J1815; J3475; J3490; J7030; J7060

== ENCOUNTER 2017-05-22 18:01 | Emergency (ER) | payer OTHER, MEDICARE ==
[2017-05-22] MEDS ORDERED: LORAZEPAM INJ 2 MG/1 ML VIAL IV ONE (18:26)
--- NOTE | 2017-05-22 18:48 | RADIOLOGY REPORT (SQ) ---
EXAM DESCRIPTION: CT HEAD WITHOUT COMPLETED DATE/TIME: 05/22/2017 6:35 pm REASON FOR STUDY: new seizure COMPARISON: MR and CT 2010 TECHNIQUE: Axial images acquired through the brain without intravenous contrast. Images reviewed wi th bone, brain and subdural windows. Images stored on PACS. All CT scanners at this facility use dose modulation, iterative reconstruction, and/or weight based d osing when appropriate to reduce radiation dose to as low as reasonably achievable (ALARA). [facility]: Dose Right [facility]: CareDose [facility]: Dose Right [facility]: Teradose 4D [facility]: [employer] RADIATION DOSE: mGy. LIMITATIONS: None. FINDINGS: VENTRICLES: Normal size and contour. CEREBRUM: No masses. No hemorrhage. No midline shift. A faint low-density areas seen high in the r ight parietal region concerning for lacunar infarction. Not clearly seen on the prior study. Correl ate clinically. . CEREBELLUM: No masses. No hemorrhage. No alteration of density. No evidence for acute infarction. EXTRAAXIAL SPACES: No fluid collections. No masses. ORBITS AND GLOBE: No intra- or extraconal masses. Normal contour of globe without masses. CALVARIUM: No fracture. PARANASAL SINUSES: No fluid or mucosal thickening. SOFT TISSUES: No mass or hematoma. OTHER: No other significant finding. IMPRESSION: No acute hemorrhage. EVIDENCE OF ACUTE STROKE: A faint low-density area in the right parietal region concerning for lacuna r infarction. COMMENT: Quality ID # [id number]: Final reports with documentation of one or more dose reduction techniques (e.g., Automated exposure control, adjustment of the mA and/or kV according to patient size, use of iterative reconstruction technique) TECHNICAL DOCUMENTATION: JOB ID: [id number] [employer]- All Rights Reserved
[2017-05-22 18:57] LABS: ABSOLUTE BASOPHILS # (AUTO) 0.1 10^3/uL (0.0-0.2); ABSOLUTE EOSINOPHILS # (AUTO) 0.2 10^3/uL (0.0-0.6); ABSOLUTE LYMPHOCYTES (AUTO) 3.6 10^3/uL (0.5-4.7); ABSOLUTE MONOCYTES (AUTO) 0.4 10^3/uL (0.1-1.4); ABSOLUTE NEUT (AUTO) 3.2 10^3/uL (1.7-8.2); BASOPHILS % (AUTO) 1.3 % (0-2); EOSINOPHILS % (AUTO) 2.4 % (0-6); HEMATOCRIT 33.7 % (37.9-51.0); HEMOGLOBIN 11.4 g/dL (13.5-17.0); LYMPHOCYTES % (AUTO) 47.5 % (13-45); MEAN CORPUSCULAR HEMOGLOBIN 29.2 pg (27.0-33.4); MEAN CORPUSCULAR HGB CONC 33.9 g/dL (32.0-36.0); MEAN CORPUSCULAR VOLUME 86 fl (80-97); PLATELET COUNT 272 10^3/uL (150-450); RED BLOOD COUNT 3.91 10^6/uL (4.35-5.55); RED CELL DISTRIBUTION WIDTH 15.4 % (11.5-14.0); SEGMENTED NEUTROPHILS % (AUTO) 42.8 % (42-78); TOTAL CELLS COUNTED % (AUTO) 100 %; WHITE BLOOD COUNT 7.5 10^3/uL (4.0-10.5)
[2017-05-22] MEDS ORDERED: LORAZEPAM 1 MG TABLET PO ONE (19:10)
--- NOTE | 2017-05-22 19:11 | ER Document Report ---
ED General - General Chief Complaint: Probable Seizure Stated Complaint: HEADACHE Time Seen by Provider: 05/22/17 18:26 Notes: 66-year-old male with a distant history of seizures off meds for several years and a remote history of alcoholism presents with episode of bilateral arm and leg shaking with loss of consciousness lasting about 30 seconds. He is a diabetic and his daughter checked his sugar several seconds prior to that it was in the 130s. He does not have a recollection of the event. No loss of bowel or bladder. Denies fever chills. Mild headache. He did have alcohol on Breanna. TRAVEL OUTSIDE OF THE [place] IN LAST 30 DAYS: No - Related Data Allergies/Adverse Reactions: No Known Allergies Allergy (Unverified 01/24/11 02:45) Past Medical History - General Information source: Patient - Social History Smoking Status: Never Smoker Chew tobacco use (# tins/day): No Frequency of alcohol use: Rare Drug Abuse: None Family History: Reviewed & Not Pertinent Patient has suicidal ideation: No Patient has homicidal ideation: No - Past Medical History Cardiac Medical History: Reports: Hx Hypercholesterolemia, Hx Hypertension Denies: Hx Coronary Artery Disease Endocrine Medical History: Reports: Hx Diabetes Mellitus Type 2 Renal/ Medical History: Denies: Hx Peritoneal Dialysis Review of Systems - Review of Systems Notes: REVIEW OF SYSTEMS GEN: Denies fever, chills, weight loss ENT: Denies sore throat, nasal discharge, ear pain EYES: Denies blurry vision, eye pain, discharge CV: Denies chest pain, palpitations, edema RESP: Denies cough, shortness of breath, wheezing GI: Denies abdominal pain, nausea, vomiting, diarrhea MSK: Denies joint pain/swelling, edema, SKIN: Denies rash, skin lesions LYMPH: Denies swollen glands/lymph nodes NEURO: D loss of consciousness full-body shaking s PSYCH: Denies depression, suicidal or homicidal ideation PHYSICAL EXAMINATION General: No acute distress, well-nourished Head: Atraumatic, normocephalic ENT: Mouth normal, oropharynx moist, no exudates or tonsillar enlargement Eyes: Conjunctiva normal, pupils equal, lids normal Neck: No JVD, supple, no guarding CVS: Normal rate, regular rhythm, no murmurs Resp: No resp distress, equal and normal breath sounds bilaterally GI: Nondistended, soft, no tenderness to palpation, no rebound or guarding Ext: No deformities, no edema, normal range of motion in upper and lower ext Back: No CVA or midline TTP Skin: No rash, warm Lymphatic: No lymphadeopathy noted Neuro: Awake, alert. Face symmetric. GCS 15. Cranial nerves II through XII intact. No pronator drift. Physical Exam - Vital signs Vitals: Resp 18 05/22/17 18:15 Course - Re-evaluation Re-evalutation: 05/22/17 19:11 Patient presents with what sounds like a generalized tonic clonic seizure, history of same remotely, off meds but did have recent alcohol use. This is likely the cause of his reduce seizure threshold. Blood sugar is normal his neurologic exam is normal. Will get a head CT given his age to rule out mass give him oral Ativan check labs and plan for discharge of all looks well. 05/22/17 22:56 CT and labs are negative. No seizure activity in the ED. Discharge with seizure precautions. Alcohol cessation counseling offered. No out at the epileptics are indicated at this time. I have discussed with the patient there likely diagnosis, aftercare plan, follow-up plans and my usual and customary return precautions. They verbalized understanding of this. - Vital Signs Vital signs: Temp Pulse Resp BP Pulse Ox 97.7 F 70 16 133/67 H 98 05/22/17 20:18 05/22/17 20:18 05/22/17 20:18 05/22/17 20:18 05/22/17 20:18 - Laboratory Result Diagrams: 05/22/17 18:45 05/22/17 19:23 Laboratory results interpreted by me: 05/22/17 05/22/17 05/22/17 18:45 18:45 19:23 RBC 3.91 L Hgb 11.4 L Hct 33.7 L RDW 15.4 H Lymphocytes % 47.5 H Est GFR (Non-Af Amer) 59 L Urine Blood SMALL H - Diagnostic Test Radiology reviewed: Image reviewed, Reports reviewed Discharge - Discharge Clinical Impression: Seizure Condition: Good Disposition: HOME, SELF-CARE Instructions: New Seizure ([facility]) Additional Instructions: Please do not climb a ladder or drive until you have been cleared by regular doctor. Referrals: OLGA FORDE MD [Primary Care Provider] - Follow up as needed
[2017-05-22 19:12] LABS: APPEARANCE,URINE CLEAR; BILIRUBIN,URINE NEGATIVE (NEGATIVE); COLOR,URINE COLORLESS; GLUCOSE, URINE NEGATIVE (NEGATIVE); KETONES,URINE NEGATIVE (NEGATIVE); LEUKOCYTE ESTERASE,URINE NEGATIVE (NEGATIVE); NITRITE,URINE NEGATIVE (NEGATIVE); PROTEIN,URINE NEGATIVE (NEGATIVE); URINE SPECIFIC GRAVITY 1.002; UROBILINOGEN,URINE NEGATIVE mg/dL (<2.0)
[2017-05-22 19:17] LABS: URINE AMPHETAMINES SCREEN NEGATIVE; URINE BARBITURATES SCREEN NEGATIVE; URINE BENZODIAZEPINES SCREEN NEGATIVE; URINE COCAINE SCREEN NEGATIVE; URINE MARIJUANA (THC) SCREEN NEGATIVE; URINE METHADONE SCREEN NEGATIVE; URINE PHENCYCLIDINE SCREEN NEGATIVE
[2017-05-22 19:50] LABS: ALANINE AMINOTRANSFERASE 23 U/L (21-72); ALBUMIN 3.9 g/dL (3.5-5.0); ALCOHOL 176 mg/dL (NONE DETECTED); ALKALINE PHOSPHATASE 70 U/L (38-126); ANION GAP 9 (5-19); ASPARTATE AMINO TRANSFERASE 19 U/L (17-59); BILIRUBIN,DIRECT 0.2 mg/dL (0.0-0.4); BILIRUBIN,TOTAL 0.2 mg/dL (0.2-1.3); BLOOD UREA NITROGEN 17 mg/dL (7-20); CALCIUM 9.4 mg/dL (8.4-10.2); CARBON DIOXIDE 27 mmol/L (22-30); CHLORIDE 102 mmol/L (98-107); GLUCOSE 102 mg/dL (75-110); MAGNESIUM 1.9 mg/dL (1.6-2.3); POTASSIUM 3.9 mmol/L (3.6-5.0); SODIUM 137.8 mmol/L (137-145); TOTAL PROTEIN 6.9 g/dL (6.3-8.2)
[2017-05-22 20:19] VITALS: BP 133/67
== END 2017-05-22 20:23 | disposition home or self-care (01) ==
LOC: ER 18:01
DX: R56.9 Unspecified convulsions (principal); R51 Headache; M79.602 Pain in left arm; M79.601 Pain in right arm; E78.00 Pure hypercholesterolemia, unspecified; I10 Essential (primary) hypertension; E11.9 Type 2 diabetes mellitus without complications
CPT/HCPCS: 36415; 70450; 80053; 80307; 81001; 83735; 85025; 99284

== ENCOUNTER 2017-10-11 22:02 | Inpatient (IN) | payer OTHER, MEDICARE ==
--- NOTE | 2017-10-12 00:13 | ER Document Report ---
ED Blood Sugar Problem - General Chief Complaint: Low Blood Sugar Stated Complaint: BLOOD SUGAR PROBLEM Time Seen by Provider: 10/11/17 23:59 Notes: Patient is a 67-year-old male that comes emergency department for chief complaint of low blood sugar. Daughter states that he started talking slowly and his eyes appeared sunken so she checked his blood sugar and it was low and then she fed him in his symptoms resolved. Most blood sugar was in the 60s, however patient has been given glucose tablets, he ate dinner including hotdogs. He is on glimepiride in addition to Januvia. He denies recently having problems with this. He denies fever chills, shortness of breath, chest pain, vomiting. TRAVEL OUTSIDE OF THE [place] IN LAST 30 DAYS: No - Related Data Allergies/Adverse Reactions: No Known Allergies Allergy (Unverified 01/24/11 02:45) Past Medical History - General Information source: Patient - Social History Smoking Status: Never Smoker Frequency of alcohol use: Heavy Drug Abuse: None Lives with: Family Family History: Reviewed & Not Pertinent - Past Medical History Cardiac Medical History: Reports: Hx Hypercholesterolemia, Hx Hypertension Denies: Hx Coronary Artery Disease Endocrine Medical History: Reports: Hx Diabetes Mellitus Type 2 Renal/ Medical History: Denies: Hx Peritoneal Dialysis - Immunizations Immunizations up to date: Yes Hx Diphtheria, Pertussis, Tetanus Vaccination: Yes Review of Systems - Review of Systems Constitutional: No symptoms reported EENT: No symptoms reported Cardiovascular: No symptoms reported Respiratory: No symptoms reported Gastrointestinal: No symptoms reported Genitourinary: No symptoms reported Male Genitourinary: No symptoms reported Musculoskeletal: No symptoms reported Skin: No symptoms reported Hematologic/Lymphatic: No symptoms reported Neurological/Psychological: See HPI Physical Exam - Vital signs Vitals: Temp Pulse BP Pulse Ox 99.0 F 99 129/79 H 98 10/11/17 22:28 10/11/17 22:28 10/11/17 22:28 10/11/17 22:28 Interpretation: Normal - General General appearance: Appears well, Alert In distress: None - HEENT Head: Normocephalic, Atraumatic Eyes: Normal Extraocular movements intact: Yes Eyelashes: Normal Pupils: PERRL Mouth/Lips: Normal Mucous membranes: Normal Pharynx: Normal Neck: Normal - Respiratory Respiratory status: No respiratory distress Chest status: Nontender Breath sounds: Normal. No: Decreased air movement, Wheezing Chest palpation: Normal - Cardiovascular Rhythm: Regular. No: Tachycardia Heart sounds: Normal auscultation, S1 appreciated, S2 appreciated Murmur: No Normal capillary refill: Yes - Abdominal Inspection: Normal Distension: No distension Bowel sounds: Normal Tenderness: Nontender Organomegaly: No organomegaly - Back Back: Normal, Nontender - Extremities General upper extremity: Normal inspection, Nontender, Normal color, Normal ROM , Normal temperature General lower extremity: Normal inspection, Nontender, Normal color, Normal ROM , Normal temperature, Normal weight bearing. 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 Patient not clearly intoxicated, alcohol was checked and noted to be about 100, he is a chronic alcoholic. Patient became hypoglycemic again despite being recently treated at home and eating, giving dextrose, placing on D5 half-normal continuous. CBC unremarkable, chemistry shows hyponatremia, acute renal insufficiency with creatinine of 1.77 which is new. Urine is consistent with a urinary tract infection, culture placed. Given Rocephin. Called and spoke with Dr. Kapoor, patient will be admitted to telemetry for recurrent hypoglycemia, renal insufficiency, UTI. Patient and family state understanding and agreement. - Vital Signs Vital signs: Temp Pulse Resp BP Pulse Ox 98.8 F 61 18 126/64 H 100 10/12/17 04:41 10/12/17 04:41 10/12/17 04:41 10/12/17 04:41 10/12/17 04:41 - Laboratory Result Diagrams: 10/12/17 00:30 10/12/17 00:30 Laboratory results interpreted by me: 10/12/17 10/12/17 10/12/17 00:30 00:30 00:30 Hgb 13.2 L RDW 16.4 H Seg Neutrophils % 37.7 L Lymphocytes % 49.2 H Eosinophils % 6.3 H Sodium 133.2 L BUN 22 H Creatinine 1.77 H Est GFR ( Amer) 47 L Est GFR (Non-Af Amer) 39 L POC Glucose ALT 13 L Ur Leukocyte Esterase LARGE H 10/12/17 02:12 Hgb RDW Seg Neutrophils % Lymphocytes % Eosinophils % Sodium BUN Creatinine Est GFR ( Amer) Est GFR (Non-Af Amer) POC Glucose 64 L ALT Ur Leukocyte Esterase Discharge - Discharge Clinical Impression: Hypoglycemia, AA (alcohol abuse), Acute renal insufficiency Urinary tract infection Qualifiers: Urinary tract infection type: site unspecified Hematuria presence: without hematuria Qualified Code(s): N39.0 - Urinary tract infection, site not specified Condition: Stable Disposition: ADMITTED INPATIENT Admitting Provider: Hospitalist Unit Admitted: Telemetry
[2017-10-12 00:48] LABS: ABSOLUTE EOSINOPHILS # (AUTO) 0.4 10^3/uL (0.0-0.6); ABSOLUTE LYMPHOCYTES (AUTO) 3.5 10^3/uL (0.5-4.7); ABSOLUTE MONOCYTES (AUTO) 0.5 10^3/uL (0.1-1.4); ABSOLUTE NEUT (AUTO) 2.7 10^3/uL (1.7-8.2); BASOPHILS % (AUTO) 0.5 % (0-2); EOSINOPHILS % (AUTO) 6.3 % (0-6); HEMATOCRIT 39.7 % (37.9-51.0); HEMOGLOBIN 13.2 g/dL (13.5-17.0); LYMPHOCYTES % (AUTO) 49.2 % (13-45); MEAN CORPUSCULAR HEMOGLOBIN 29.4 pg (27.0-33.4); MEAN CORPUSCULAR HGB CONC 33.3 g/dL (32.0-36.0); MEAN CORPUSCULAR VOLUME 88 fl (80-97); MONOCYTES % (AUTO) 6.3 % (3-13); PLATELET COUNT 256 10^3/uL (150-450); RED BLOOD COUNT 4.51 10^6/uL (4.35-5.55); RED CELL DISTRIBUTION WIDTH 16.4 % (11.5-14.0); SEGMENTED NEUTROPHILS % (AUTO) 37.7 % (42-78); TOTAL CELLS COUNTED % (AUTO) 100 %; WHITE BLOOD COUNT 7.2 10^3/uL (4.0-10.5)
[2017-10-12] MEDS ORDERED: GABAPENTIN 300 MG CAPSULE PO ONE (00:52)
[2017-10-12 01:06] LABS: ALANINE AMINOTRANSFERASE 13 U/L (21-72); ALBUMIN 4.2 g/dL (3.5-5.0); ALKALINE PHOSPHATASE 58 U/L (38-126); ANION GAP 10 (5-19); ASPARTATE AMINO TRANSFERASE 27 U/L (17-59); BILIRUBIN,DIRECT 0.2 mg/dL (0.0-0.4); BILIRUBIN,TOTAL 0.2 mg/dL (0.2-1.3); BLOOD UREA NITROGEN 22 mg/dL (7-20); CALCIUM 9.5 mg/dL (8.4-10.2); CARBON DIOXIDE 23 mmol/L (22-30); CHLORIDE 100 mmol/L (98-107); GLUCOSE 86 mg/dL (75-110); POTASSIUM 4.4 mmol/L (3.6-5.0); SODIUM 133.2 mmol/L (137-145); TOTAL PROTEIN 7.5 g/dL (6.3-8.2)
[2017-10-12 01:12] LABS: APPEARANCE,URINE SLIGHTLY-CLOUDY; BILIRUBIN,URINE NEGATIVE (NEGATIVE); COLOR,URINE YELLOW; GLUCOSE, URINE NEGATIVE (NEGATIVE); KETONES,URINE NEGATIVE (NEGATIVE); LEUKOCYTE ESTERASE,URINE LARGE (NEGATIVE); NITRITE,URINE NEGATIVE (NEGATIVE); PROTEIN,URINE NEGATIVE (NEGATIVE); URINE SPECIFIC GRAVITY 1.009; UROBILINOGEN,URINE NEGATIVE mg/dL (<2.0)
[2017-10-12] MEDS ORDERED: CEFTRIAXONE INJ 1000 MG VIAL IV ONE (02:14)
[2017-10-12] MEDS ORDERED: DEXTROSE 50%-WATER 25 GM/50 ML DISP.SYRIN IV ONE ×2 (02:14→02:18)
[2017-10-12] MEDS ORDERED: DEXTROSE 5%-1/2 NORMAL SALINE 1,000 ML IV PRN (02:37)
[2017-10-12] MEDS ORDERED: ACETAMINOPHEN 325 MG TABLET PO PRN (02:48)
[2017-10-12] MEDS ORDERED: GLUCAGON,HUMAN RECOMB 1 MG INJ IM PRN ×2 (02:51→02:55)
[2017-10-12] MEDS ORDERED: DEXTROSE 40% GEL 15 GM TUBE PO PRN ×4 (02:51→02:55)
[2017-10-12] MEDS ORDERED: DEXTROSE 50%-WATER 25 GM/50 ML DISP.SYRIN IV PRN ×4 (02:51→02:55)
[2017-10-12] MEDS: DEXTROSE 5%-1/2 NORMAL SALINE 1,000 ML IV PRN (03:49)
[2017-10-12] MEDS: ENOXAPARIN SODIUM INJ 30 MG/0.3 ML DISP.SYRIN SUBCUT SCH (09:28)
[2017-10-12] MEDS: CARVEDILOL 12.5 MG TABLET PO SCH ×2 (09:28→21:39)
[2017-10-12] MEDS: AMLODIPINE BESYLATE 5 MG TABLET PO SCH (09:28)
--- NOTE | 2017-10-12 12:42 | PDOC H&P ---
History of Present Illness Admission Date/PCP: 10/12/17 03:11 OLGA FORDE MD Patient complains of: Low blood sugar History of Present Illness: ERNIE MERLOS is a 67 year old male This is a 67-year-old male with very noncompliance history of the type 2 diabetes history of hypertension's history of chronic kidney disease and history of the goutHistory of the alcoholism brought to the emergency department by the daughter because of the low blood sugar around 62 According to the patient's he was not drinking alcohol for a long time but started drinking yesterday and then patients noticed that blood sugar is running low Patient's he is also taking the glimepiride and also glipizide Continues to take the Lantus but is currently not taking for a long time per the patient and the daughter [facility] the patient on the floor blood sugar was 130-140 range currently on D5 Patient's denied any chest pain denied any shortness of the breath Denied any urinary symptom Past Medical History Cardiac Medical History: Reports: Hyperlipidema, Hypertension Denies: Coronary Artery Disease Endocrine Medical History: Reports: Diabetes Mellitus Type 2 Renal/ Medical History: Reports: Chronic Kidney Disease Musculoskeltal Medical History: Reports: Arthritis, Gout Social History Lives with: Family Smoking Status: Never Smoker Frequency of Alcohol Use: Heavy Hx Recreational Drug Use: No Drugs: None Hx Prescription Drug Abuse: No Family History Family History: Reviewed & Not Pertinent Parental Family History Reviewed: Yes Children Family History Reviewed: Yes Sibling(s) Family History Reviewed.: Yes Medication/Allergy Home Medications: Atorvastatin Calcium [Lipitor 40 mg Tablet] 40 mg PO QHS 10/31/16 Amlodipine Besylate [Amlodipine Besylate] 5 mg PO DAILY 10/12/17 Carvedilol [Coreg 25 mg Tablet] 25 mg PO Q12 10/12/17 Gabapentin [Neurontin] 300 mg PO QHS 10/12/17 Glimepiride [Glimepiride] 2 mg PO BID 10/12/17 Hydroxychloroquine Sulfate 200 mg PO BID 10/12/17 Lisinopril 40 mg PO DAILY 10/12/17 Sitagliptin Phosphate [Januvia] 100 mg PO DAILY 10/12/17 Allergies/Adverse Reactions: No Known Allergies Allergy (Verified 10/12/17 09:50) Review of Systems Constitutional: ABSENT: chills, fever(s), headache(s), weight gain, weight loss Eyes: ABSENT: visual disturbances Ears: ABSENT: hearing changes Cardiovascular: ABSENT: chest pain, dyspnea on exertion, edema, orthropnea, palpitations Respiratory: ABSENT: cough, hemoptysis Gastrointestinal: ABSENT: abdominal pain, constipation, diarrhea, hematemesis, hematochezia, nausea, vomiting Genitourinary: ABSENT: dysuria, hematuria Musculoskeletal: ABSENT: joint swelling Integumentary: ABSENT: rash, wounds Neurological: ABSENT: abnormal gait, abnormal speech, confusion, dizziness, focal weakness, syncope Psychiatric: ABSENT: anxiety, depression, homidical ideation, suicidal ideation Endocrine: ABSENT: cold intolerance, heat intolerance, menstrual abnormalities, polydipsia, polyuria Hematologic/Lymphatic: ABSENT: easy bleeding, easy bruising, lymphadenopathy Physical Exam Vital Signs: Temp Pulse Resp BP Pulse Ox 98.8 F 74 19 119/65 96 10/12/17 11:04 10/12/17 11:04 10/12/17 11:04 10/12/17 11:04 10/12/17 11:04 Intake & Output 10/11/17 10/12/17 10/13/17 06:59 06:59 06:59 Intake Total 300 Balance 300 Weight 112.4 kg General appearance: PRESENT: no acute distress, well-developed, well-nourished Head exam: PRESENT: atraumatic, normocephalic Eye exam: PRESENT: conjunctiva pink, EOMI, PERRLA. ABSENT: scleral icterus Ear exam: PRESENT: normal external ear exam Mouth exam: PRESENT: moist, tongue midline Neck exam: PRESENT: full ROM. ABSENT: carotid bruit, JVD, lymphadenopathy, thyromegaly Respiratory exam: PRESENT: clear to auscultation winsome Cardiovascular exam: PRESENT: RRR. ABSENT: diastolic murmur, rubs, systolic murmur Pulses: PRESENT: normal dorsalis pedis pul, +2 pedal pulses bilateral Vascular exam: PRESENT: normal capillary refill GI/Abdominal exam: PRESENT: normal bowel sounds, soft. ABSENT: distended, guarding, mass, organolmegaly, rebound, tenderness Rectal exam: PRESENT: deferred Extremities exam: ABSENT: pedal edema Musculoskeletal exam: PRESENT: ambulatory Neurological exam: PRESENT: alert, awake, oriented to person, oriented to place , oriented to time, oriented to situation, CN II-XII grossly intact. ABSENT: motor sensory deficit Psychiatric exam: PRESENT: appropriate affect, normal mood. ABSENT: homicidal ideation, suicidal ideation Skin exam: PRESENT: dry, intact, warm. ABSENT: cyanosis, rash Assessment & Plan - Diagnosis (1) Hypoglycemia Is this a current diagnosis for this admission?: Yes Plan: Continues to D5 one half normal saline DC the all the sulfonylurea (2) Acute renal insufficiency Is this a current diagnosis for this admission?: Yes Plan: Continues to IV fluid (3) Urinary tract infection Qualifiers: Urinary tract infection type: site unspecified Hematuria presence: without hematuria Qualified Code(s): N39.0 - Urinary tract infection, site not specified Is this a current diagnosis for this admission?: Yes Plan: Send the urine for the culture and get the urine analysis continues to [facility] (4) Hypertension Qualifiers: Hypertension type: essential hypertension Is this a current diagnosis for this admission?: Yes Plan: Currently stable (5) Type 2 diabetes mellitus Qualifiers: Diabetes mellitus jail insulin use: without moth exterminator use Is this a current diagnosis for this admission?: Yes Plan: We will currently DC the sulfonylurea while the patient have a problem with the hypoglycemia consider continues to Januvia unable to take the metformin due to the chronic kidney disease B consider use that once a day insulin which patient used to taking the Lantus in the past (6) AA (alcohol abuse) Is this a current diagnosis for this admission?: Yes Plan: We will put the patient in the AA protocol - Time Time Spent: 30 to 50 Minutes Medications reviewed and adjusted accordingly: Yes Anticipated discharge: Home Within: within 24 hours - Inpatient Certification Medical Necessity: Need Close Monitoring Due to Risk of Patient Decompensation, Need For IV Fluids, Need for IV Antibiotics Post Hospital Care: 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
[2017-10-12] MEDS ORDERED: ATORVASTATIN CALCIUM 40 MG TABLET PO SCH (22:00)
[2017-10-13 06:17] LABS: ABSOLUTE EOSINOPHILS # (AUTO) 0.3 10^3/uL (0.0-0.6); ABSOLUTE MONOCYTES (AUTO) 0.6 10^3/uL (0.1-1.4); ABSOLUTE NEUT (AUTO) 3.5 10^3/uL (1.7-8.2); BASOPHILS % (AUTO) 0.3 % (0-2); EOSINOPHILS % (AUTO) 4.7 % (0-6); HEMATOCRIT 35.5 % (37.9-51.0); LYMPHOCYTES % (AUTO) 31.8 % (13-45); MEAN CORPUSCULAR HEMOGLOBIN 29.7 pg (27.0-33.4); MEAN CORPUSCULAR HGB CONC 33.8 g/dL (32.0-36.0); MEAN CORPUSCULAR VOLUME 88 fl (80-97); MONOCYTES % (AUTO) 9.2 % (3-13); PLATELET COUNT 224 10^3/uL (150-450); RED BLOOD COUNT 4.03 10^6/uL (4.35-5.55); RED CELL DISTRIBUTION WIDTH 16.6 % (11.5-14.0); TOTAL CELLS COUNTED % (AUTO) 100 %; WHITE BLOOD COUNT 6.4 10^3/uL (4.0-10.5)
[2017-10-13 06:48] LABS: ALANINE AMINOTRANSFERASE 19 U/L (21-72); ALBUMIN 3.4 g/dL (3.5-5.0); ALKALINE PHOSPHATASE 56 U/L (38-126); ANION GAP 6 (5-19); ASPARTATE AMINO TRANSFERASE 14 U/L (17-59); BILIRUBIN,DIRECT 0.2 mg/dL (0.0-0.4); BILIRUBIN,TOTAL 0.2 mg/dL (0.2-1.3); BLOOD UREA NITROGEN 19 mg/dL (7-20); CALCIUM 9.4 mg/dL (8.4-10.2); CARBON DIOXIDE 25 mmol/L (22-30); CHLORIDE 110 mmol/L (98-107); GLUCOSE 113 mg/dL (75-110); SODIUM 140.9 mmol/L (137-145); TOTAL PROTEIN 6.1 g/dL (6.3-8.2)
[2017-10-13] MEDS: DEXTROSE 5%-1/2 NORMAL SALINE 1,000 ML IV PRN ×2 (09:29→17:04)
[2017-10-13] MEDS: CARVEDILOL 12.5 MG TABLET PO SCH (09:30)
[2017-10-13] MEDS: AMLODIPINE BESYLATE 5 MG TABLET PO SCH (09:30)
[2017-10-13] MEDS: ENOXAPARIN SODIUM INJ 30 MG/0.3 ML DISP.SYRIN SUBCUT SCH (09:38)
[2017-10-13] MEDS ORDERED: CEFTRIAXONE 1 GM/D5W RTU 1 GM/50 ML RTUPB IV SCH (10:00)
[2017-10-13] MEDS ORDERED: CEFTRIAXONE SODIUM 1,000 MG in DEXTROSE 5%-WATER 50 ML IV SCH (10:00)
--- NOTE | 2017-10-13 18:23 | PDOC DISCHARGE SUMMARY ---
General - Admit/Disc Date/PCP Admission Date/Primary Care Provider: 10/12/17 03:11 OLGA FORDE MD Discharge Date: 10/13/17 - Discharge Diagnosis (1) Hypoglycemia Is this a current diagnosis for this admission?: Yes Summary: See covering attending physician orders. (2) Type 2 diabetes mellitus Is this a current diagnosis for this admission?: Yes (3) Urinary tract infection Is this a current diagnosis for this admission?: Yes (4) AA (alcohol abuse) Is this a current diagnosis for this admission?: Yes - Additional Information Prescriptions: Cefuroxime Axetil [Ceftin 500 mg Tablet] 1 tab PO BID #14 tablet Home Medications: Atorvastatin Calcium [Lipitor 40 mg Tablet] 40 mg PO QHS 10/31/16 Amlodipine Besylate 5 mg PO DAILY 10/12/17 Carvedilol [Coreg 25 mg Tablet] 25 mg PO Q12 10/12/17 Gabapentin [Neurontin] 300 mg PO QHS 10/12/17 Glimepiride 2 mg PO BID 10/12/17 Hydroxychloroquine Sulfate 200 mg PO BID 10/12/17 Lisinopril 40 mg PO DAILY 10/12/17 Sitagliptin Phosphate [Januvia] 100 mg PO DAILY 10/12/17 Cefuroxime Axetil [Ceftin 500 mg Tablet] 1 tab PO BID #14 tablet 10/13/17 History of Present Illness History of Present Illness: ERNIE MERLOS is a 67 year old male This is a 67-year-old male with very noncompliance history of the type 2 diabetes history of hypertension's history of chronic kidney disease and history of the gout and history of the alcoholism brought to the emergency department by the daughter because of the low blood sugar around 62 According to the patient's he was not drinking alcohol for a long time but started drinking yesterday and then patients noticed that blood sugar is running low Patient's he is also taking the glimepiride and also glipizide Continues to take the Lantus but is currently not taking for a long time per the patient and the daughter [facility] saw the patient on the floor blood sugar was 130-140 range currently on D5 Patient's denied any chest pain denied any shortness of the breath Denied any urinary symptom Hospital Course Hospital Course: Patient was managed with IV fluid resuscitation an treated for possible UTI. His accuchek has been acceptable. His urine culture grew Viridian Streptococcus > 100,000 col/mL. He denied any fever or chills. No difficulty with breathing, chest pain, nausea or vomiting. Patient insisted upon discharge home today. He will follow up with Dr Forde as instructed upon discharge. Physical Exam Vital Signs: Temp Pulse Resp BP Pulse Ox 98.5 F 75 14 143/77 H 99 10/13/17 12:00 10/13/17 14:00 10/13/17 12:00 10/13/17 12:00 10/13/17 12:00 Intake & Output 10/12/17 10/13/17 10/14/17 06:59 06:59 06:59 Intake Total 300 2820 1698 Balance 300 2820 1698 Weight 112.4 kg 112.3 kg General appearance: PRESENT: no acute distress Head exam: PRESENT: atraumatic, normocephalic Eye exam: PRESENT: conjunctiva pink, EOMI, PERRLA. ABSENT: scleral icterus Respiratory exam: PRESENT: clear to auscultation winsome Cardiovascular exam: PRESENT: RRR. ABSENT: diastolic murmur, rubs, systolic murmur GI/Abdominal exam: PRESENT: normal bowel sounds, soft Extremities exam: ABSENT: pedal edema Musculoskeletal exam: PRESENT: ambulatory Neurological exam: PRESENT: alert, awake, oriented to person, oriented to place , oriented to time, oriented to situation, CN II-XII grossly intact. ABSENT: motor sensory deficit Psychiatric exam: PRESENT: appropriate affect, normal mood. ABSENT: homicidal ideation, suicidal ideation Skin exam: PRESENT: dry, intact, warm. ABSENT: cyanosis, rash Results Laboratory Results: 10/13/17 05:04 10/13/17 05:04 10/13/17 10/13/17 05:04 05:04 WBC 6.4 RBC 4.03 L Hgb 12.0 L Hct 35.5 L MCV 88 MCH 29.7 MCHC 33.8 RDW 16.6 H Plt Count 224 Seg Neutrophils % 54.0 Lymphocytes % 31.8 Monocytes % 9.2 Eosinophils % 4.7 Basophils % 0.3 Absolute Neutrophils 3.5 Absolute Lymphocytes 2.0 Absolute Monocytes 0.6 Absolute Eosinophils 0.3 Absolute Basophils 0.0 Sodium 140.9 Potassium 5.0 Chloride 110 H Carbon Dioxide 25 Anion Gap 6 BUN 19 Creatinine 1.32 H Est GFR ( Amer) > 60 Est GFR (Non-Af Amer) 54 L Glucose 113 H Calcium 9.4 Total Bilirubin 0.2 AST 14 L ALT 19 L Alkaline Phosphatase 56 Total Protein 6.1 L Albumin 3.4 L Qualifiers - * PATIENT BEING DISCHARGED WITH ANY OF THE FOLLOWING DIAGNOSIS: No Plan Discharge Plan: Discharge home today. Follow up with Dr Forde as instructed upon discharge.
[2017-10-13 18:34] VITALS: BP 143/77
== END 2017-10-13 19:02 | disposition home or self-care (01) | DRG 638 ==
LOC: ER 22:02 → EH 10-12 03:11 → 4S 10-12 04:30
PROVIDERS: ADMIT Family Medicine; ATTEND Family Medicine
DX: E11.649 Type 2 diabetes mellitus with hypoglycemia without coma (principal); N39.0 Urinary tract infection, site not specified; F10.20 Alcohol dependence, uncomplicated; N28.9 Disorder of kidney and ureter, unspecified; Y90.5 Blood alcohol level of 100-119 mg/100 ml; Z91.19 Patient's noncompliance with other medical treatment and regimen; I12.9 Hypertensive chronic kidney disease with stage 1 through stage 4 chronic kidney disease, or unspecified chronic kidney disease; E11.22 Type 2 diabetes mellitus with diabetic chronic kidney disease; N18.9 Chronic kidney disease, unspecified; E78.5 Hyperlipidemia, unspecified; M10.9 Gout, unspecified; M19.90 Unspecified osteoarthritis, unspecified site; B95.4 Other streptococcus as the cause of diseases classified elsewhere; Z79.4 Long term (current) use of insulin
CPT/HCPCS: 36415; 80053; 80307; 81001; 82962; 85025; 87086; 96365; 96375; 99285; J0696; J1650; J3490

== ENCOUNTER → 2019-01-22 | Outpatient (CLI) | payer OTHER, MEDICARE ==
[2019-01-22 14:03] LABS: ABSOLUTE EOSINOPHILS # (AUTO) 0.3 10^3/uL (0.0-0.6); ABSOLUTE LYMPHOCYTES (AUTO) 2.6 10^3/uL (0.5-4.7); ABSOLUTE MONOCYTES (AUTO) 0.6 10^3/uL (0.1-1.4); ABSOLUTE NEUT (AUTO) 4.3 10^3/uL (1.7-8.2); BASOPHILS % (AUTO) 0.4 % (0-2); EOSINOPHILS % (AUTO) 3.7 % (0-6); HEMATOCRIT 43.5 % (37.9-51.0); HEMOGLOBIN 14.9 g/dL (13.5-17.0); MEAN CORPUSCULAR HEMOGLOBIN 31.5 pg (27.0-33.4); MEAN CORPUSCULAR HGB CONC 34.2 g/dL (32.0-36.0); MEAN CORPUSCULAR VOLUME 92 fl (80-97); MONOCYTES % (AUTO) 7.6 % (3-13); PLATELET COUNT 302 10^3/uL (150-450); RED BLOOD COUNT 4.72 10^6/uL (4.35-5.55); RED CELL DISTRIBUTION WIDTH 14.1 % (11.5-14.0); SEGMENTED NEUTROPHILS % (AUTO) 55.3 % (42-78); TOTAL CELLS COUNTED % (AUTO) 100 %; WHITE BLOOD COUNT 7.8 10^3/uL (4.0-10.5)
[2019-01-22 14:07] LABS: APPEARANCE,URINE CLEAR; BILIRUBIN,URINE NEGATIVE (NEGATIVE); COLOR,URINE YELLOW; GLUCOSE, URINE NEGATIVE (NEGATIVE); KETONES,URINE NEGATIVE (NEGATIVE); LEUKOCYTE ESTERASE,URINE SMALL (NEGATIVE); NITRITE,URINE NEGATIVE (NEGATIVE); PROTEIN,URINE NEGATIVE (NEGATIVE); URINE SPECIFIC GRAVITY 1.005; UROBILINOGEN,URINE NEGATIVE mg/dL (<2.0)
[2019-01-22 14:22] LABS: ALBUMIN 4.2 g/dL (3.5-5.0); ALKALINE PHOSPHATASE 89 U/L (38-126); ANION GAP 8 (5-19); ASPARTATE AMINO TRANSFERASE 23 U/L (17-59); BILIRUBIN,DIRECT 0.2 mg/dL (0.0-0.4); BILIRUBIN,TOTAL 0.4 mg/dL (0.2-1.3); BLOOD UREA NITROGEN 11 mg/dL (7-20); CALCIUM 10.1 mg/dL (8.4-10.2); CARBON DIOXIDE 24 mmol/L (22-30); CHLORIDE 98 mmol/L (98-107); GLUCOSE 127 mg/dL (75-110); POTASSIUM 5.8 mmol/L (3.6-5.0); TOTAL PROTEIN 7.3 g/dL (6.3-8.2); URIC ACID 6.2 mg/dL (3.5-8.5)
== END ==
LOC: OD 13:25
PROVIDERS: ATTEND Internal Medicine Nephrology
DX: E11.22 Type 2 diabetes mellitus with diabetic chronic kidney disease (principal); I12.9 Hypertensive chronic kidney disease with stage 1 through stage 4 chronic kidney disease, or unspecified chronic kidney disease; N18.3 Chronic kidney disease, stage 3 (moderate); M10.00 Idiopathic gout, unspecified site
CPT/HCPCS: 36415; 80053; 81001; 84550; 85025

== ENCOUNTER → 2019-01-27 | Outpatient (CLI) | payer OTHER, MEDICARE | LOC: OD 13:11 | PROVIDERS: ATTEND Physician Assistant Medical | DX: E87.5 Hyperkalemia (principal) | CPT/HCPCS: 36415; 84132 ==

== ENCOUNTER 2019-02-25 09:58 | Day surgery (SDC) | payer OTHER, MEDICARE ==
[~2019-02-25 09:58] MED LIST: DORZOLAMIDE HCL 2%/TIMOLOL MALEAT 0.5% OPH SOLN 10 ML OS PRN; KETOROLAC TROMETHAMINE 0.45% 4 DROP/0.4 ML DROPERETTE OS PRN
[2019-02-25] MEDS ORDERED: LIDOCAINE 1%/PHENYLEPHRINE 1.5% 1 ML VIAL ONE (10:12)
[2019-02-25] MEDS ORDERED: TRYPAN BLUE 0.06 % OPH SOLN 0.5 ML DISP.SYRIN ONE (10:12)
[2019-02-25] MEDS ORDERED: EPINEPHRINE INJ/PF 1 MG/1 ML AMPULE ONE (10:12)
[2019-02-25] MEDS ORDERED: CHONDR SU A NA/HYALUR INTRAOC KIT (SURGICARE) ONE (10:12)
[2019-02-25] MEDS: CYCLOPENTOLATE 0.2%/PHENYLEPHRINE 1% OPH SOLN 2 ML OS PRN ×3 (11:03→11:23)
[2019-02-25] MEDS: TROPICAMIDE 1% OPH SOLN 15 ML OS PRN ×3 (11:03→11:23)
[2019-02-25] MEDS: BESIFLOXACIN HCL 0.6% OPH SUSP 5 ML BOTTLE OS PRN ×3 (11:03→11:54)
[2019-02-25] MEDS: TETRACAINE HCL 0.5% OPH SOLN 4 ML OS PRN ×3 (11:04→11:36)
[2019-02-25] MEDS ORDERED: MIDAZOLAM 2 MG/2 ML INJ ONE (11:13)
[2019-02-25] MEDS ORDERED: FENTANYL CITRATE INJ/PF 100 MCG/2 ML AMPUL ONE (11:13)
--- NOTE | 2019-02-25 12:08 | Operative Report ---
Operative Report-[facility] Operative Report: DATE OF SURGERY: 02/25/2019 PREOPERATIVE DIAGNOSIS: Cataracts, left eye POSTOPERATIVE DIAGNOSIS: Cataract, left eye OPERATION: Cataract extraction with insertion of an IOL of the left eye. Intraocular Lens Model: [22.0 sn60wf] reason for surgery was difficulty driving at night secondary to glare from headlights SURGEON: Anthony Tipton MD ANESTHESIA: Topical PROCEDURE: After obtaining appropriate consent, the patient's left eye was prepped and draped in a sterile fashion as well as the surgeon in the sterile manner and cataract surgery was started. First a paracentesis blade was used to make a side-port incision. Viscoelastic was used to inflate the anterior chamber. Next a 2.4 mm incision was made with a 2.4 mm blade, clear corneal temporarily. A continuous capsulorrhexis was made using a cystotome and Utrata forceps. Following this hydrodissection was carried out to make commands fully loose and mobile and it was rotated 90 degrees. Following this, a divide and conquer technique was used to phacoemulsify the lens. The remaining cortex was removed with an irrigation/aspiration. Provisc was instilled into the capsular bag to inflate the bag.The intracular lens was placed. The remaining viscoelastic material was removed with irrigation/aspiration. Following this, the incision was found to be watertight. Besivance and Cosopt was instilled into the eye and a protective shield was placed over the eye. The patient was turned to the postoperative recovery in a stable condition.
== END 2019-02-25 12:48 | disposition home or self-care (01) ==
LOC: SC 09:58
PROVIDERS: ATTEND Internal Medicine
DX: H25.89 Other age-related cataract (principal); H57.03 Miosis; F17.210 Nicotine dependence, cigarettes, uncomplicated; I10 Essential (primary) hypertension; Z79.899 Other long term (current) drug therapy; E11.9 Type 2 diabetes mellitus without complications; Z79.84 Long term (current) use of oral hypoglycemic drugs
CPT/HCPCS: 66984; 82962; J2250; J3490 ×2; J0171; J3010; J2370; V2632

== ENCOUNTER → 2019-03-17 | Outpatient (CLI) | payer MEDICARE ==
--- NOTE | 2019-03-17 14:59 | RADIOLOGY REPORT (SQ) ---
EXAM DESCRIPTION: CT CHEST WITHOUT COMPLETED DATE/TIME: 03/17/2019 1:37 pm REASON FOR STUDY: R05 COUGH R05 COUGH COMPARISON: None. TECHNIQUE: CT scan performed of the chest without intravenous contrast. Images reviewed with lung, soft tissue and bone windows. Reconstructed coronal and sagittal MPR images reviewed. All images st ored on PACS. All CT scanners at this facility use dose modulation, iterative reconstruction, and/or weight based d osing when appropriate to reduce radiation dose to as low as reasonably achievable (ALARA). [facility]: Dose Right [facility]: CareDose [facility]: Dose Right [facility]: Teradose 4D [facility]: Smart [employer] RADIATION DOSE: mGy. LIMITATIONS: No technical limitations. FINDINGS: LUNGS AND PLEURA: No masses, infiltrates, or pneumothorax. No pleural effusions or pleura l calcifications. HILAR AND MEDIASTINAL STRUCTURES: No identified masses or abnormal nodes. No obvious aneurysm. HEART AND VASCULAR STRUCTURES: No aneurysm. No pericardial effusion. Coronary atherosclerosis. UPPER ABDOMEN: No significant findings. Limited exam. THYROID AND OTHER SOFT TISSUES: No masses. No adenopathy. BONES: No significant finding. HARDWARE: None in the chest. OTHER: No other significant findings. IMPRESSION: No acute cardiopulmonary findings. Coronary atherosclerosis is present. TECHNICAL DOCUMENTATION: JOB ID: [id number] Quality ID # 436: Final reports with documentation of one or more dose reduction techniques (e.g., Au tomated exposure control, adjustment of the mA and/or kV according to patient size, use of iterative reconstruction technique) 2010 [employer]- All Rights Reserved Reading location - IP/workstation name: [email or web address]
== END ==
LOC: RAD 13:26
PROVIDERS: ATTEND Family Medicine
DX: R05 Cough (principal)
CPT/HCPCS: 71250

== ENCOUNTER 2019-03-27 10:56 | Day surgery (SDC) | payer OTHER, MEDICARE ==
[~2019-03-27 10:56] MED LIST changes: +CHONDR SU A NA/HYALUR INTRAOC KIT (SURGICARE) ONE; -DORZOLAMIDE HCL 2%/TIMOLOL MALEAT 0.5% OPH SOLN 10 ML OS PRN; +EPINEPHRINE INJ/PF 1 MG/1 ML AMPULE ONE; +KETOROLAC TROMETHAMINE 0.45% 4 DROP/0.4 ML DROPERETTE OD PRN; -KETOROLAC TROMETHAMINE 0.45% 4 DROP/0.4 ML DROPERETTE OS PRN; +LIDOCAINE 1%/PHENYLEPHRINE 1.5% 1 ML VIAL ONE; +TRYPAN BLUE 0.06 % OPH SOLN 0.5 ML DISP.SYRIN ONE
[2019-03-27] MEDS ORDERED: FENTANYL CITRATE INJ/PF 100 MCG/2 ML AMPUL ONE (11:15)
[2019-03-27] MEDS ORDERED: ONDANSETRON HCL INJ/PF 4 MG/2 ML SDV ONE (11:15)
[2019-03-27] MEDS ORDERED: MIDAZOLAM 2 MG/2 ML INJ ONE (11:15)
[2019-03-27] MEDS: TROPICAMIDE 1% OPH SOLN 15 ML OD PRN ×3 (11:40→12:00)
[2019-03-27] MEDS: BESIFLOXACIN HCL 0.6% OPH SUSP 5 ML BOTTLE OD PRN ×4 (11:40→12:43)
[2019-03-27] MEDS: CYCLOPENTOLATE 0.2%/PHENYLEPHRINE 1% OPH SOLN 2 ML OD PRN ×3 (11:40→12:00)
[2019-03-27] MEDS: TETRACAINE HCL 0.5% OPH SOLN 4 ML OD PRN ×3 (11:40→12:23)
[2019-03-27] MEDS: DORZOLAMIDE HCL 2%/TIMOLOL MALEAT 0.5% OPH SOLN 10 ML OD PRN ×2 (12:31→12:43)
--- NOTE | 2019-03-28 07:04 | Operative Report ---
Operative Report-[facility] Operative Report: DATE OF SURGERY: 03/27/2019 PREOPERATIVE DIAGNOSIS: Cataract, right eye POSTOPERATIVE DIAGNOSIS: Cataract, right eye OPERATION: Cataract extraction with insertion of an IOL of the right eye. Intraocular Lens Model: [22.5 sn60wf] Reason for surgery was difficulty watching television SURGEON: Anthony Tipton MD ANESTHESIA: Topical PROCEDURE: After obtaining appropriate consent, the patient's right eye was prepped and draped in a sterile fashion as well as the surgeon in the sterile manner and cataract surgery was started. First a paracentesis blade was used to make a side-port incision. Viscoelastic was used to inflate the anterior chamber. Next a 2.4 mm incision was made with a 2.4 mm blade, clear corneal temporarily. A continuous capsulorrhexis was made using a cystotome and Utrata forceps. Following this hydrodissection was carried out to make the gloria fully loose and mobile and it was rotated. Following this, a divide and conquer technique was used to phacoemulsify the gloria. The remaining cortex was removed with an irrigation/aspiration. Provisc was instilled into the capsular bag to inflate the bag. The intraocular lens was placed. The remaining viscoelastic material was removed with irrigation/aspiration. Following this, the incision was found to be watertight. Besivance and Cosopt was instilled into the eye and a protective shield was placed over the eye. The patient was reurned to the postoperative recovery in a stable condition.
== END 2019-03-27 13:21 | disposition home or self-care (01) ==
LOC: SC 10:56
PROVIDERS: ATTEND Internal Medicine
DX: H25.89 Other age-related cataract (principal); Z96.1 Presence of intraocular lens; F17.210 Nicotine dependence, cigarettes, uncomplicated; E11.9 Type 2 diabetes mellitus without complications
CPT/HCPCS: 66984; 82962; 00142; V2632; J2250; J3490 ×2; J0171; J3010; J2405; J2370; 142

== ENCOUNTER → 2019-05-29 | Outpatient (CLI) | payer OTHER, MEDICARE ==
[2019-05-29 14:34] LABS: ABSOLUTE EOSINOPHILS # (AUTO) 0.1 10^3/uL (0.0-0.6); ABSOLUTE MONOCYTES (AUTO) 0.5 10^3/uL (0.1-1.4); BASOPHILS % (AUTO) 0.4 % (0-2); EOSINOPHILS % (AUTO) 2.4 % (0-6); HEMATOCRIT 46.6 % (37.9-51.0); HEMOGLOBIN 15.9 g/dL (13.5-17.0); LYMPHOCYTES % (AUTO) 34.6 % (13-45); MEAN CORPUSCULAR HEMOGLOBIN 31.9 pg (27.0-33.4); MEAN CORPUSCULAR HGB CONC 34.1 g/dL (32.0-36.0); MEAN CORPUSCULAR VOLUME 94 fl (80-97); MONOCYTES % (AUTO) 8.9 % (3-13); PLATELET COUNT 264 10^3/uL (150-450); RED BLOOD COUNT 4.98 10^6/uL (4.35-5.55); RED CELL DISTRIBUTION WIDTH 14.9 % (11.5-14.0); SEGMENTED NEUTROPHILS % (AUTO) 53.7 % (42-78); TOTAL CELLS COUNTED % (AUTO) 100 %; WHITE BLOOD COUNT 5.7 10^3/uL (4.0-10.5)
[2019-05-29 14:39] LABS: APPEARANCE,URINE SLIGHTLY-CLOUDY; BILIRUBIN,URINE NEGATIVE (NEGATIVE); COLOR,URINE YELLOW; GLUCOSE, URINE >=500 mg/dL (NEGATIVE); KETONES,URINE NEGATIVE (NEGATIVE); LEUKOCYTE ESTERASE,URINE SMALL (NEGATIVE); NITRITE,URINE NEGATIVE (NEGATIVE); PROTEIN,URINE NEGATIVE (NEGATIVE); TRICHOMONAS, URINE PRESENT /HPF; URINE SPECIFIC GRAVITY 1.025; UROBILINOGEN,URINE NEGATIVE mg/dL (<2.0)
[2019-05-29 15:01] LABS: ANION GAP 12 (5-19); BLOOD UREA NITROGEN 24 mg/dL (7-20); CALCIUM 10.3 mg/dL (8.4-10.2); CARBON DIOXIDE 26 mmol/L (22-30); CHLORIDE 97 mmol/L (98-107); GLUCOSE 256 mg/dL (75-110); POTASSIUM 5.2 mmol/L (3.6-5.0)
[2019-05-30 11:37] LABS: CREATININE URINE 131.9 mg/dL (Not Estab.); MICROALBUMIN URINE 5.3 ug/mL (Not Estab.)
== END ==
LOC: OD 13:29
PROVIDERS: ATTEND Internal Medicine Nephrology
DX: I12.9 Hypertensive chronic kidney disease with stage 1 through stage 4 chronic kidney disease, or unspecified chronic kidney disease (principal); N18.3 Chronic kidney disease, stage 3 (moderate); E11.22 Type 2 diabetes mellitus with diabetic chronic kidney disease; N39.0 Urinary tract infection, site not specified
CPT/HCPCS: 36415; 80048; 81001; 82043; 82570; 85025; 87086

== ENCOUNTER → 2019-09-03 | Outpatient (CLI) | payer MEDICARE ==
[2019-09-03 10:33] LABS: ABSOLUTE EOSINOPHILS # (AUTO) 0.3 10^3/uL (0.0-0.6); ABSOLUTE LYMPHOCYTES (AUTO) 3.1 10^3/uL (0.5-4.7); ABSOLUTE MONOCYTES (AUTO) 0.7 10^3/uL (0.1-1.4); ABSOLUTE NEUT (AUTO) 4.1 10^3/uL (1.7-8.2); BASOPHILS % (AUTO) 0.5 % (0-2); EOSINOPHILS % (AUTO) 3.6 % (0-6); HEMATOCRIT 44.1 % (37.9-51.0); HEMOGLOBIN 15.7 g/dL (13.5-17.0); LYMPHOCYTES % (AUTO) 37.8 % (13-45); MEAN CORPUSCULAR HEMOGLOBIN 32.9 pg (27.0-33.4); MEAN CORPUSCULAR HGB CONC 35.7 g/dL (32.0-36.0); MEAN CORPUSCULAR VOLUME 92 fl (80-97); MONOCYTES % (AUTO) 8.8 % (3-13); PLATELET COUNT 210 10^3/uL (150-450); RED BLOOD COUNT 4.78 10^6/uL (4.35-5.55); RED CELL DISTRIBUTION WIDTH 13.3 % (11.5-14.0); SEGMENTED NEUTROPHILS % (AUTO) 49.3 % (42-78); TOTAL CELLS COUNTED % (AUTO) 100 %; WHITE BLOOD COUNT 8.2 10^3/uL (4.0-10.5)
[2019-09-03 10:35] LABS: APPEARANCE,URINE CLEAR; BILIRUBIN,URINE NEGATIVE (NEGATIVE); COLOR,URINE STRAW; GLUCOSE, URINE 50 mg/dL (NEGATIVE); KETONES,URINE NEGATIVE (NEGATIVE); LEUKOCYTE ESTERASE,URINE NEGATIVE (NEGATIVE); NITRITE,URINE NEGATIVE (NEGATIVE); PROTEIN,URINE NEGATIVE (NEGATIVE); URINE SPECIFIC GRAVITY 1.004; UROBILINOGEN,URINE NEGATIVE mg/dL (<2.0)
[2019-09-03 10:56] LABS: ANION GAP 7 (5-19); BLOOD UREA NITROGEN 16 mg/dL (7-20); CALCIUM 9.7 mg/dL (8.4-10.2); CARBON DIOXIDE 28 mmol/L (22-30); CHLORIDE 98 mmol/L (98-107); GLUCOSE 289 mg/dL (75-110); POTASSIUM 4.9 mmol/L (3.6-5.0)
== END ==
LOC: OD 09:37
PROVIDERS: ATTEND Internal Medicine Nephrology
DX: I12.9 Hypertensive chronic kidney disease with stage 1 through stage 4 chronic kidney disease, or unspecified chronic kidney disease (principal); N18.3 Chronic kidney disease, stage 3 (moderate); E11.22 Type 2 diabetes mellitus with diabetic chronic kidney disease
CPT/HCPCS: 36415; 80048; 81001; 85025

== ENCOUNTER → 2020-01-01 | Outpatient (CLI) | payer MEDICARE ==
--- NOTE | 2020-01-01 11:31 | RADIOLOGY REPORT (SQ) ---
EXAM DESCRIPTION: CT ABD/PELVIS NO ORAL OR IV IMAGES COMPLETED DATE/TIME: 01/01/2020 9:13 am REASON FOR STUDY: R97.20 ELEVATED PROSTATE SPECIFIC ANTIGEN PSA, C61 MALIGNANT NEOPLASM OF R97.20 E LEVATED PROSTATE SPECIFIC ANTIGEN PSA C61 MALIGNANT NEOPLASM OF PROSTATE COMPARISON: None. TECHNIQUE: CT scan of the abdomen and pelvis performed without intravenous or oral contrast. Images reviewed with lung, soft tissue, and bone windows. Reconstructed coronal and sagittal MPR images revi ewed. All images stored on PACS. All CT scanners at this facility use dose modulation, iterative reconstruction, and/or weight based d osing when appropriate to reduce radiation dose to as low as reasonably achievable (ALARA). [facility]: Dose Right [facility]: CareDose [facility]: Dose Right [facility]: Teradose 4D [facility]: [employer] RADIATION DOSE: CT Rad equipment meets quality standard of care and radiation dose reduction techniq ues were employed. CTDIvol: 14.0 mGy. DLP: 759 mGy-cm.mGy. LIMITATIONS: None. FINDINGS: LOWER CHEST: No significant findings. No nodules or infiltrates. NON-CONTRASTED LIVER, SPLEEN, ADRENALS: Evaluation limited by lack of IV contrast. No identified sign ificant masses. PANCREAS: No masses. No peripancreatic inflammatory changes. GALLBLADDER: No identified stones by CT criteria. No inflammatory changes to suggest cholecystitis. RIGHT KIDNEY AND URETER: No suspicious masses. Assessment limited by lack of IV contrast. No signif icant calcifications. No hydronephrosis or hydroureter. LEFT KIDNEY AND URETER: No suspicious masses. Assessment limited by lack of IV contrast. No signifi cant calcifications. No hydronephrosis or hydroureter. AORTA AND RETROPERITONEUM: No aneurysm. No retroperitoneal masses or adenopathy. BOWEL AND PERITONEAL CAVITY: No obvious masses or inflammatory changes. No free fluid. APPENDIX: Normal. PELVIS, BLADDER, AND ABDOMINAL WALL:Thickening of the urinary bladder wall. No pelvic adenopathy. BONES: No significant findings. OTHER: No other significant finding. IMPRESSION: Thickening of the urinary bladder wall. No acute findings. COMMENT: Quality ID # 436: Final reports with documentation of one or more dose reduction techniques (e.g., Automated exposure control, adjustment of the mA and/or kV according to patient size, use of iterative reconstruction technique) TECHNICAL DOCUMENTATION: JOB ID: [id number] 2010 [employer]- All Rights Reserved Reading location - IP/workstation name: [email or web address]
--- NOTE | 2020-01-01 15:01 | RADIOLOGY REPORT (SQ) ---
EXAM DESCRIPTION: NM WHOLE BODY BONE SCAN IMAGES COMPLETED DATE/TIME: 01/01/2020 12:52 pm REASON FOR STUDY: R97.20 ELEVATED PROSTATE SPECIFIC ANTIGEN PSA, C61 MALIGNANT NEOPLASM OF R97.20 E LEVATED PROSTATE SPECIFIC ANTIGEN PSA C61 MALIGNANT NEOPLASM OF PROSTATE COMPARISON: CT abdomen pelvis dated 01/01/2020 RADIONUCLIDE AND DOSE: 20.3 millicuries Tc99m MDP. The route of agent administration: Intravenous. ADDITIONAL DRUGS AND DOSES: None. TECHNIQUE: Routine delayed images at 3 hour post radionuclide injection acquired of the bony skeleto n including anterior and posterior whole-body projections and additional focused images as needed. LIMITATIONS: None. FINDINGS: BONES: Normal visualization without areas of photopenia or increased bony uptake of radiop harmaceutical. KIDNEYS: Symmetric excretion without obstruction. OTHER: No other significant finding. IMPRESSION: NORMAL BONE SCAN. COMMENT: Quality measure 147: Current bone scan is compared with any available plain radiographs, p rior bone scans, and CT/MRI. TECHNICAL DOCUMENTATION: JOB ID: [id number] 2010 [employer]- All Rights Reserved Reading location - IP/workstation name: [email or web address]
== END ==
LOC: RAD 08:52
PROVIDERS: ATTEND Family Medicine
DX: C61 Malignant neoplasm of prostate (principal); R97.20 Elevated prostate specific antigen [PSA]
CPT/HCPCS: 78306; 74176; A9503; Q9969